=== PATIENT | male | born 1970 | race Caucasian/White ===

== ENCOUNTER 2024-04-01 09:53 | Outpatient (CLI) | payer MEDICAID, SELFPAY ==
[2024-04-01 18:10] LABS: Basophils # 0.1 K/mm3 (0-0.2); Basophils % 0.9 % (0.1-2.0); Eosinophils # 0.1 K/mm3 (0.0-0.4); Eosinophils % 0.9 % (0.1-12.0); Hematocrit 40.7 % (42.0-52.0); Hemoglobin 13.5 g/dL (14.1-18.0); Lymphocytes # 1.1 K/mm3 (0.7-4.5); Lymphocytes % 13.6 % (10-50); Mean Corpuscular HGB Conc 33.3 g/dL (31.8-35.4); Mean Corpuscular Hemoglobin 32.6 pg (27.0-31.2); Mean Corpuscular Volume 97.9 fl (80-94); Monocytes # 0.5 K/mm3 (0.1-1.0); Monocytes % 6.5 % (1.7-9.3); Neutrophils # 6.3 K/mm3 (1.8-7.8); Neutrophils % 78.1 % (37.0-80.0); Platelet Count 144 K/mm3 (142-424); Red Blood Count 4.15 M/mm3 (4.60-6.20); Red Cell Distribution Width 16.5 % (11.5-17.5); White Blood Count 8.1 K/mm3 (4.8-10.8)
[2024-04-01 18:47] LABS: Alanine Aminotransferase 41 U/L (12-78); Albumin Level 3.1 g/dl (3.5-5.0); Albumin/Globulin Ratio 0.7 (1.1-1.8); Alkaline Phosphatase 183 U/L (38-126); Anion Gap 13.7 mEq/L (5-15); Aspartate Amino Transferase 154 U/L (17-59); Bilirubin,Total 9.7 mg/dl (0.2-1.3); Blood Urea Nitrogen 5 mg/dl (9-20); Calcium 8.2 mg/dl (8.4-10.2); Carbon Dioxide 35 mmol/L (22.0-30.0); Chloride 87 mmol/L (98-107); Chol/HDL Ratio 16.8 (1-3.5); Cholesterol 252 mg/dl (140-200); Estimated Glomerular Filt Rate 117 ml/min (>60); GFR (African American) 141 ML/MIN (>60); Globulin 4.7 g/dL (1.3-3.2); Glucose 154 mg/dl (74-100); HDL Cholesterol 15 mg/dl (40-60); Lipase 401 U/L (23-300); Sodium 133 mmol/L (136-145); Total Protein,Serum 7.8 g/dl (6.3-8.2); Triglycerides 168 mg/dl (30-150); VLDL Cholesterol 34 mg/dL (0-40)
[2024-04-01 19:06] LABS: Direct LDL Cholesterol 141.73 mg/dL (100-129)
[2024-04-01 19:09] LABS: Potassium 2.7 mmoL/L (3.5-5.1)
[2024-04-01 19:15] LABS: Prostate Specific Ag Screen 0.8 ng/ml (0.0-4.0)
== END 2024-04-01 23:59 | disposition home or self-care (01) ==
LOC: LAB.DROPOF 04-02 09:54
PROVIDERS: PCP Family Medicine; Visit Provider Family Medicine
DX: R17 Unspecified jaundice (principal); R10.9 Unspecified abdominal pain; Z12.5 Encounter for screening for malignant neoplasm of prostate
CPT/HCPCS: 80053; 80061; 83690; 85025; G0103

== ENCOUNTER 2024-04-05 11:43 | Outpatient (CLI) | payer MEDICAID, SELFPAY ==
[2024-04-05 21:24] LABS: Alanine Aminotransferase 35 U/L (12-78); Albumin Level 3.3 g/dl (3.5-5.0); Albumin/Globulin Ratio 0.7 (1.1-1.8); Alkaline Phosphatase 151 U/L (38-126); Aspartate Amino Transferase 136 U/L (17-59); Bilirubin,Total 13.2 mg/dl (0.2-1.3); Blood Urea Nitrogen 6 mg/dl (9-20); Calcium 8.5 mg/dl (8.4-10.2); Carbon Dioxide 34 mmol/L (22.0-30.0); Chloride 87 mmol/L (98-107); Estimated Glomerular Filt Rate 117 ml/min (>60); GFR (African American) 141 ML/MIN (>60); Globulin 4.7 g/dL (1.3-3.2); Glucose 96 mg/dl (74-100); Sodium 134 mmol/L (136-145)
[2024-04-05 21:32] LABS: Anion Gap 15.9 mEq/L (5-15)
[2024-04-05 22:22] LABS: Potassium 2.9 mmoL/L (3.5-5.1)
[2024-04-10 15:19] LABS: HBsAg Screen Negative (Negative); HCV Ab Equivocal (Non Reactive); Hep A Ab, IGM Negative (Negative); Hep B Core Ab, IgM Negative (Negative)
== END 2024-04-05 23:59 | disposition home or self-care (01) ==
LOC: LAB.DROPOF 04-06 11:43
PROVIDERS: PCP Family Medicine; Visit Provider Family Medicine
DX: E87.6 Hypokalemia (principal); K75.2 Nonspecific reactive hepatitis
CPT/HCPCS: 80053; 80074

== ENCOUNTER 2024-04-08 08:17 | Outpatient (CLI) | payer MEDICAID, SELFPAY ==
--- NOTE | 2024-04-08 08:18 | CT_ITS ---
FINAL REPORT TECHNIQUE: After the administration of intravenous contrast, axial images were obtained through the abdomen and pelvis by computed tomography. This study was performed with technique to keep radiation doses as low as reasonably achievable, (ALARA). Individualized dose reduction techniques using automated exposure control or adjustment of the MA and/or KV according to the patient's size were employed. CLINICAL HISTORY: Jaundice; Weight loss; Abdominal Pain FINDINGS: Abdomen: The lung bases demonstrate a small loculated effusion in the posterior right hemithorax. Scarring is seen at the lung bases. The liver has a nodular contour consistent with cirrhosis. Gallbladder is present. The spleen is enlarged up to 14 cm.. The adrenals are normal. The pancreas is unremarkable. The kidneys enhance appropriately. The aorta is normal in caliber. There is a large amount of ascites throughout the abdomen and pelvis. Pelvis: The appendix is normal. The urinary bladder is unremarkable. There is no free fluid or adenopathy. IMPRESSION: Changes of cirrhosis with associated splenomegaly and ascites. Small right base pleural effusion. Reviewed, Interpreted and Dictated by Don Herron MD Transcribed by Vera Calderon Authenticated and [facility]
[2024-04-08] MEDS: IOPAMIDOL-370 (76%);100ML BOTTLE 75 ML IV (08:54)
[2024-04-08] MEDS: SODIUM CHLORIDE 0.9% 10ML SYR (RAD ONLY) 10 ML IV (08:54)
== END 2024-04-08 23:59 | disposition home or self-care (01) ==
LOC: RAD 08:18
PROVIDERS: PCP Family Medicine; Visit Provider Family Medicine
DX: R10.9 Unspecified abdominal pain (principal); R17 Unspecified jaundice
CPT/HCPCS: 74177; Q9967

== ENCOUNTER 2024-04-09 09:43 | Outpatient (CLI) | payer MEDICAID, SELFPAY ==
[2024-04-09 18:44] LABS: Alanine Aminotransferase 36 U/L (12-78); Albumin Level 3.1 g/dl (3.5-5.0); Albumin/Globulin Ratio 0.7 (1.1-1.8); Alkaline Phosphatase 160 U/L (38-126); Anion Gap 12.4 mEq/L (5-15); Aspartate Amino Transferase 130 U/L (17-59); Bilirubin,Total 8.7 mg/dl (0.2-1.3); Blood Urea Nitrogen 5 mg/dl (9-20); Calcium 8.8 mg/dl (8.4-10.2); Carbon Dioxide 32 mmol/L (22.0-30.0); Chloride 94 mmol/L (98-107); Estimated Glomerular Filt Rate 117 ml/min (>60); GFR (African American) 141 ML/MIN (>60); Globulin 4.5 g/dL (1.3-3.2); Glucose 114 mg/dl (74-100); Potassium 3.4 mmoL/L (3.5-5.1); Sodium 135 mmol/L (136-145); Total Protein,Serum 7.6 g/dl (6.3-8.2)
== END 2024-04-09 23:59 | disposition home or self-care (01) ==
LOC: LAB.DROPOF 04-13 09:43
PROVIDERS: PCP Family Medicine; Visit Provider Family Medicine
DX: E87.6 Hypokalemia (principal)
CPT/HCPCS: 80053

== ENCOUNTER 2024-06-14 19:27 | Outpatient (CLI) | payer MEDICAID, SELFPAY ==
[2024-06-14 20:05] LABS: Basophils # 0.1 K/mm3 (0-0.2); Basophils % 1.4 % (0.1-2.0); Eosinophils # 0.2 K/mm3 (0.0-0.4); Eosinophils % 5.6 % (0.1-12.0); Hematocrit 32.4 % (42.0-52.0); Hemoglobin 10.4 g/dL (14.1-18.0); Lymphocytes # 1.1 K/mm3 (0.7-4.5); Lymphocytes % 25.7 % (10-50); Mean Corpuscular HGB Conc 32.2 g/dL (31.8-35.4); Mean Corpuscular Hemoglobin 30.9 pg (27.0-31.2); Mean Corpuscular Volume 95.9 fl (80-94); Mean Platelet Volume 10.2 fl (7.4-10.4); Monocytes # 0.2 K/mm3 (0.1-1.0); Monocytes % 5.5 % (1.7-9.3); Neutrophils # 2.5 K/mm3 (1.8-7.8); Neutrophils % 61.7 % (37.0-80.0); Platelet Count 133 K/mm3 (142-424); Red Blood Count 3.38 M/mm3 (4.60-6.20); Red Cell Distribution Width 14.3 % (11.5-17.5); White Blood Count 4.1 K/mm3 (4.8-10.8)
[2024-06-14 20:28] LABS: Alanine Aminotransferase 30 U/L (12-78); Albumin Level 2.7 g/dl (3.5-5.0); Albumin/Globulin Ratio 0.6 (1.1-1.8); Alkaline Phosphatase 374 U/L (38-126); Anion Gap 6.8 mEq/L (5-15); Aspartate Amino Transferase 68 U/L (17-59); Bilirubin,Total 4.4 mg/dl (0.2-1.3); Blood Urea Nitrogen 6 mg/dl (9-20); Calcium 8.5 mg/dl (8.4-10.2); Carbon Dioxide 29 mmol/L (22.0-30.0); Chloride 104 mmol/L (98-107); Estimated Glomerular Filt Rate 117 ml/min (>60); GFR (African American) 141 ML/MIN (>60); Globulin 4.2 g/dL (1.3-3.2); Glucose 113 mg/dl (74-100); Potassium 3.8 mmoL/L (3.5-5.1); Sodium 136 mmol/L (136-145); Total Protein,Serum 6.9 g/dl (6.3-8.2)
== END 2024-06-14 23:59 | disposition home or self-care (01) ==
LOC: LAB.DROPOF 19:28
PROVIDERS: PCP Family Medicine; Visit Provider Family Medicine
DX: R10.9 Unspecified abdominal pain (principal); R42 Dizziness and giddiness
CPT/HCPCS: 80053; 85025

== ENCOUNTER 2024-06-20 20:35 | Inpatient (IN) | payer MEDICAID, SELFPAY ==
[2024-06-20 20:45] VITALS: BP 113/65; PULSE 108; RESP 16; TEMP 37.6; O2SAT 93; BMI 21.2
--- NOTE | 2024-06-20 20:45 | XR_ITS ---
PROCEDURE INFORMATION: Exam: XR Chest Exam date and time: 06/20/2024 9:20 PM Age: 54 years old Clinical indication: Other: Encephalopathy TECHNIQUE: Imaging protocol: Radiologic exam of the chest. Views: 1 view. COMPARISON: CT ABDOMEN PELVIS W CON 04/08/2024 8:35 AM FINDINGS: Lungs: Mild bibasilar atelectasis with small lung volumes. No acute infiltrates. Pleural spaces: Unremarkable. No pleural effusion. No pneumothorax. Heart/Mediastinum: Unremarkable. No cardiomegaly. Bones/joints: Unremarkable. IMPRESSION: Mild bibasilar atelectasis with small lung volumes. No acute infiltrates.
--- NOTE | 2024-06-20 20:45 | ECG_ITS ---
APPROVED REPORT Exam: Resting ECG HR:100 bpm ECG Measurements Heart Rate 100 AXES IL 143 P 39 QRSd 93 QRS 25 QT 379 T 34 QTc 436 Conclusion SINUS TACHYCARDIA NONSPECIFIC ST & T-WAVE ABNORMALITY ABNORMAL RHYTHM ECG Electronically signed by : KEISHA HERNANDEZ, 06/21/2024 00:25:01
--- NOTE | 2024-06-20 20:45 | CT_ITS ---
PROCEDURE INFORMATION: Exam: CT Head Without Contrast Exam date and time: 06/20/2024 9:22 PM Age: 54 years old Clinical indication: Other: Encephalopathy TECHNIQUE: Imaging protocol: Computed tomography of the head without contrast. Radiation optimization: All CT scans at this facility use at least one of these dose optimization techniques: automated exposure control; mA and/or kV adjustment per patient size (includes targeted exams where dose is matched to clinical indication); or iterative reconstruction. COMPARISON: No relevant prior studies available. FINDINGS: Brain: Normal. No hemorrhage. Unremarkable white matter. No mass effect. Cerebral ventricles: No ventriculomegaly. Paranasal sinuses: Visualized sinuses are unremarkable. No fluid levels. Mastoid air cells: Visualized mastoid air cells are well aerated. Bones: Unremarkable. No acute fracture. Soft tissues: Unremarkable. IMPRESSION: No acute intracranial abnormality.
[2024-06-20 21:00] VITALS: BP 94/60; PULSE 100; O2SAT 94
[2024-06-20 21:10] LABS: Basophils % 0.2 % (0.1-2.0); Eosinophils % 0.3 % (0.1-12.0); Hemoglobin 10.2 g/dL (14.1-18.0); Lymphocytes # 0.2 K/mm3 (0.7-4.5); Lymphocytes % 2.6 % (10-50); Mean Corpuscular HGB Conc 32.9 g/dL (31.8-35.4); Mean Corpuscular Volume 94.3 fl (80-94); Mean Platelet Volume 8.2 fl (7.4-10.4); Monocytes # 0.3 K/mm3 (0.1-1.0); Monocytes % 3.4 % (1.7-9.3); Neutrophils # 7.1 K/mm3 (1.8-7.8); Neutrophils % 93.5 % (37.0-80.0); Platelet Count 118 K/mm3 (142-424); Red Blood Count 3.28 M/mm3 (4.60-6.20); Red Cell Distribution Width 14.4 % (11.5-17.5); White Blood Count 7.5 K/mm3 (4.8-10.8)
[2024-06-20 21:12] LABS: MANUAL DIFFERENTIAL MANUAL DIFFERENTIAL (MANUAL DIFF)
--- NOTE | 2024-06-20 21:14 | PC.NURSE ---
RT notified of VBG
[2024-06-20 21:15] LABS: Chloride 104 mmol/L (98-107)
[2024-06-20 21:16] LABS: Albumin Level 2.9 g/dl (3.5-5.0); Sodium 135 mmol/L (136-145)
[2024-06-20 21:19] LABS: Alanine Aminotransferase 35 U/L (12-78); Albumin/Globulin Ratio 0.7 (1.1-1.8); Alkaline Phosphatase 200 U/L (38-126); Aspartate Amino Transferase 86 U/L (17-59); Bilirubin,Total 6.3 mg/dl (0.2-1.3); Blood Urea Nitrogen 6 mg/dl (9-20); Calcium 8.3 mg/dl (8.4-10.2); Carbon Dioxide 27 mmol/L (22.0-30.0); Creatinine Clearance Estimated 93 mL/min (50-200); Estimated Glomerular Filt Rate 100 ml/min (>60); GFR (African American) 121 ML/MIN (>60); Globulin 3.9 g/dL (1.3-3.2); Glucose 94 mg/dl (74-100); Lipase 232 U/L (23-300); Total Protein,Serum 6.8 g/dl (6.3-8.2)
--- NOTE | 2024-06-20 21:19 | HMH.EDGENADL ---
Discharge Plan Disposition Chief Complaint: Altered Mental Status Prescriptions Prescriptions: No Action pantoprazole 40 mg tablet,delayed release (DR/EC) 40 mg PO DAILY spironolactone 50 mg tablet 50 mg PO DAILY nadolol 20 mg tablet 40 mg PO DAILY torsemide 20 mg tablet See Rx Instructions .ROUTE .COMPLEX Qty: 60 3RF Rx Instructions: one qd-bid prn edema lactulose 10 gram/15 mL solution PO DAILY Patient Comments: TAKE 30 ML EVERY DAY BY ORAL ROUTE FOR 30 DAYS. oxycodone 5 mg tablet 5 mg PO DAILY PRN (Reason: pain) Qty: 20 0RF potassium chloride 20 mEq tablet extended release 20 meq PO TID Qty: 90 1RF Referrals Follow up/Referrals: Hamilton Esteves MD [Primary Care Provider] - See instructions Instructions Patient Instructions: DI for Altered Mental Status Print Language Print Language: Sinhala Discharge ED Provider: Ab [facility] Adult HPI General Chief complaint: Altered Mental Status Stated complaint: lethargy,confusion,edema Time Seen by Provider: 06/20/24 20:36 Mode of Arrival: EMS Source of Information: Patient Limitations: No Limitations Description of Symptoms (Recalled from ER Triage Doc. by RN): 54 yo male presents with cc of altered mental status and swelling. Patient has a PMH: LIVER cirrhosis, and it is suspected by family that this is liver related. Patient is alert to self, able to discuss and answer most questions, but appears confused. Moderate weeping to BLE History of Present Illness HPI narrative: Patient is a 54-year-old male past medical history of alcoholic cirrhosis last drink 6 months ago's emergency department for evaluation of encephalopathy. Patient lives at home. He has had a cough over the last few days, no chest pain, there is associated dysuria. Patient has solitary kidney for which she had kidney cancer and had a previous nephrectomy, unknown if he gets chemoradiation currently. He has never had dialysis before. Patient has had fluid taken off of his abdomen 1 time. He does not know what hospital systems he gets his care in. He is also had swelling of the bilateral lower extremities for years however he states that he has had a red rash popped up on his right lower extremity over the last 48 hours for which he has fashioned a dressing with paper towels and duct tape. Related Data Home Medications ?Medication ?Instructions ?Recorded ?Confirmed nadolol 20 mg tablet 40 mg PO DAILY 05/07/24 06/14/24 pantoprazole 40 mg tablet,delayed 40 mg PO DAILY 05/07/24 06/14/24 release spironolactone 50 mg tablet 50 mg PO DAILY 05/07/24 06/14/24 lactulose 10 gram/15 mL oral PO DAILY 06/14/24 06/14/24 solution Previous Rx's ?Medication ?Instructions ?Recorded potassium chloride 20 mEq 20 meq PO TID #90 tabs 04/19/24 tablet,extended release torsemide 20 mg tablet See Rx Instructions .Route 05/07/24 .COMPLEX #60 tabs oxycodone 5 mg tablet 5 mg PO DAILY PRN pain #20 tabs 06/14/24 Allergies Allergy/AdvReac Type Severity Reaction Status Date / Time No Known Allergies Allergy Verified 06/14/24 08:25 [facility] Disclaimer: The information contained in this section may have been updated after the patient was seen, as this information can be updated by other users. Medical History (Updated 06/14/24 @ 09:32 by Hamilton Esteves MD) Renal cell cancer Surgical History (Updated 06/14/24 @ 09:32 by Hamilton Esteves MD) History of surgery on left wrist Hx of kidney removal Family History Other Cancer Social History Smoking Status: Former smoker tobacco type: cigarettes alcohol intake: current alcohol intake frequency: holidays/special occasions only current occupational status: unemployed Travel in the last 8 weeks: None ROS Obtained: Yes Systems reviewed as appropriate & no additional complaint
[2024-06-20 21:20] LABS: Magnesium 1.4 mg/dl (1.6-2.3); VBG Base Excess -1.9 mmol/L (-2.4-2.3); VBG Oxygen Saturation 79.1 % (50-70); VBG PCO2 31.7 mmol/L (35-51); VBG PH 7.46 mmol/L (7.31-7.41); VBG PO2 43.3 mmol/L (28-40)
[2024-06-20 21:21] LABS: Lactate Venous 3.1 mmol/L (0.4-2.0)
[2024-06-20 21:30] VITALS: BP 95/54; PULSE 103; O2SAT 94
[2024-06-20 21:34] LABS: Troponin I < 0.01 ng/ml (0.00-0.034)
[2024-06-20 21:44] LABS: Bilirubin,Direct 1.6 mg/dl (0.0-0.4)
[2024-06-20 21:47] LABS: Ethyl Alcohol < 10 mg/dl (0-10)
[2024-06-20 21:50] LABS: Ammonia 38 umol/L (9-30)
[2024-06-20 22:00] VITALS: BP 94/52; PULSE 102; PULSE 103; O2SAT 95
[2024-06-20 22:12] LABS: Lymphocytes % 3 % (10-50); Monocytes % 5 % (2-9); Neutrophils % 92 % (42-76); RBC Morphology Normal; Total Cells Counted 100
[2024-06-20 22:13] LABS: Platelet Estimate Slight Decrease
[2024-06-20 22:20] VITALS: PULSE 104
--- NOTE | 2024-06-20 22:54 | PC.NURSE ---
call placed to rt for duoneb. informed md of persistent hypotension and initiation of ivf's. he will re-assess patient at this time.
--- NOTE | 2024-06-20 23:04 | PC.NURSE ---
bed request ordered on wrong patient
[2024-06-20 23:24] LABS: NT Pro Brain Natriuretic Pep. 1950 pg/mL (0-125)
[2024-06-20 23:58] LABS: Appearance,Body Fld. Normal; Source, Body Fld. Peritoneal Fluid
[2024-06-21] VITALS (20 sets, daily range): BP systolic 84–106; BP diastolic 50–65; PULSE 87–114; RESP 15–26; TEMP 36.8–37.8; O2SAT 93–98; BMI 31.1; BMI 31.3
[2024-06-21 00:07] LABS: RBC,Body Fluid < 10 cells/uL (< 10 X 10^3); TNC,Body Fluid 176 cells/uL (< 1000); Volume,Body Fld. 33.5 mL
[2024-06-21 00:31] LABS: Microscopic, Urine URINE MICROSCOPIC (MICROSCOPIC)
[2024-06-21 00:38] LABS: Appearance,Urine CLEAR (Clear); Blood, Urine Negative (Negative); Glucose,Urine (UA) Negative (Negative); Ketones,Urine TRACE (Negative); Leukocyte Esterase,Urine Negative (Negative); Nitrate,Urine Negative (Negative); Protein,Urine TRACE (Negative); Specific Gravity, Urine >= 1.030 (1.005-1.030); Urobilinogen,Urine >=8.0 EU/dl (0.2)
[2024-06-21 00:40] LABS: Bilirubin,Urine 2+ (Negative); Color,Urine Dark Yellow (Yellow)
--- NOTE | 2024-06-21 00:44 | XR_ITS ---
PROCEDURE INFORMATION: Exam: XR Right Ankle Exam date and time: 06/21/2024 1:00 AM Age: 54 years old Clinical indication: Pain; Ankle; Right; Additional info: Right ankle pain TECHNIQUE: Imaging protocol: Radiologic exam of the right ankle. Views: 1 or 2 views. COMPARISON: No relevant prior studies available. FINDINGS: Bones/joints: No acute fracture, dislocation or osseous destructive process. Soft tissues: Diffuse soft tissue swelling about the ankle. No radiopaque foreign body. IMPRESSION: 1. No acute osseous findings. 2. Soft tissue swelling.
--- NOTE | 2024-06-21 01:03 | PC.NURSE ---
Patient arrived to floor via stretcher from ED at 00:56.
[2024-06-21 01:21] LABS: Reflex Lactic Add Lactic Reflex
[2024-06-21 01:28] LABS: Mononuclear WBCs,Body Fluid 90 %; Polynuclear WBC,Body Fluid 10 %
[2024-06-21 01:35] LABS: Troponin I < 0.01 ng/ml (0.00-0.034)
--- NOTE | 2024-06-21 01:42 | EXP.HP ---
History of Present Illness *Admission Date: 06/21/24 *Reason for visit:: Encephalopathy, with confusion altered mental status, jaundice, edema *History of present illness: Patient was not able to give clear history, from evaluating chart main thing is only has 1 kidney question cancer and the one that was removed. Greater than 40-year smoking, has been seeing a local primary care provider. But apparently ended up in long-term for more than 10 days, where he was given none of his medications, he now comes in jaundice, pleasantly confused,, significant abdominal and lower extremity edema, confirmed with CT scan. Mild pleural effusion in the bases of the lungs. Showing signs of severe malnutrition, review of older charts indicated elevated PT/INR. Thrombocytopenia, splenomegaly, cirrhosis with ascites. ER physician evaluated the patient and did tap fluid from the abdomen, still waiting on results. I have met with the ER physician and do agree that the gentleman needs to be placed in, to evaluate for nutrition, edema fluid status and to see if we can get him back on the right medications. On interview on morning rounds, patient states that he came in because of weakness in his legs. He has been progressively worsening for the past 2 weeks. He has been home from long-term for a few weeks and had a care. His brothers have been unable to get him up and take care of him. Came to the ER for evaluation for weakness and confusion. Alert and oriented to place and self today. Complaining of abdominal pain, worse with palpation, no rebound. States his legs been swelling more. [facility] Disclaimer: The information contained in this section may have been updated after the patient was seen, as this information can be updated by other users. Medical History Renal cell cancer Surgical History History of surgery on left wrist Hx of kidney removal Family History Other Cancer Social History Smoking Status: Current every day smoker tobacco type: cigarettes packs per day: 1 years smoked: 50 alcohol intake: former current occupational status: unemployed Travel in the last 8 weeks: None household members: none housing: other lives independently: Yes (pt states he lives in a camper ) marital status: single residential: No Review of Systems Review of Systems Review of systems:: unable to obtain (Patient has pleasantly confused was not able to get complete history) and pertinent systems reviewed and negative unless documented below Constitutional Constitutional: Reports as per HPI, Reports anorexia, Reports fatigue, Reports malaise and Reports weakness Eyes Eyes: Reports as per HPI ENT Ears, Nose, Mouth, and Throat: Reports system reviewed and no additional complaints, except as documented and Reports as per HPI *Cardiovascular Cardiovascular: Reports as per HPI, Reports edema, Reports leg edema, Reports leg ulcers, Reports pedal edema and Reports rapid heart rate Comments: He denies chest pain *Respiratory Respiratory: Reports as per HPI Comments: Patient reports no difficulty breathing *Gastrointestinal Gastrointestinal: Reports as per HPI, Reports abdominal pain and Reports bloating *Genitourinary Genitourinary: Reports as per HPI, Reports scrotal swelling and Reports urinary incontinence *Musculoskeletal Musculoskeletal: Reports as per HPI, Reports joint swelling and Reports muscle weakness Integumentary/Breasts Skin/Breast: Reports as per HPI, Reports change in pigmentation, Reports lesions (To scrotum feet and legs), Reports non-healing lesions, Reports skin pain, Reports sores and Reports skin swelling *Neurologic Neurologic: Reports as per HPI, Reports behavioral changes, Reports confusion, Reports memory loss and Reports weakness Comme
[2024-06-21 01:46] LABS: Bacteria,Urine Trace /lpf; Squamous Epithelial Cell,Urine Occasional #/hpf (0-5); WBC,Urine Occasional #/hpf (0-3)
[2024-06-21 03:34] LABS: Reflex Lactic (2 hrs) Add Lactic Reflex
[2024-06-21 04:31] LABS: Albumin Level 2.5 g/dl (3.5-5.0); Chloride 105 mmol/L (98-107); Potassium 3.1 mmoL/L (3.5-5.1); Sodium 136 mmol/L (136-145)
[2024-06-21 04:33] LABS: Anion Gap 11.1 mEq/L (5-15); Blood Urea Nitrogen 6 mg/dl (9-20); Carbon Dioxide 23 mmol/L (22.0-30.0); Creatinine Clearance Estimated 136 mL/min (50-200); Estimated Glomerular Filt Rate 100 ml/min (>60); GFR (African American) 121 ML/MIN (>60)
[2024-06-21 04:34] LABS: Alanine Aminotransferase 42 U/L (12-78); Albumin/Globulin Ratio 0.7 (1.1-1.8); Alkaline Phosphatase 140 U/L (38-126); Aspartate Amino Transferase 87 U/L (17-59); Bilirubin,Total 5.7 mg/dl (0.2-1.3); Calcium 8.1 mg/dl (8.4-10.2); Globulin 3.7 g/dL (1.3-3.2); Glucose 102 mg/dl (74-100); Hematocrit 27.6 % (42.0-52.0); Hemoglobin 9.3 g/dL (14.1-18.0); Lymphocytes # 0.2 K/mm3 (0.7-4.5); Lymphocytes % 2.2 % (10-50); Magnesium 1.8 mg/dl (1.6-2.3); Mean Corpuscular HGB Conc 33.5 g/dL (31.8-35.4); Mean Corpuscular Hemoglobin 31.1 pg (27.0-31.2); Mean Corpuscular Volume 92.8 fl (80-94); Mean Platelet Volume 7.6 fl (7.4-10.4); Monocytes # 0.2 K/mm3 (0.1-1.0); Neutrophils % 95.7 % (37.0-80.0); Platelet Count 100 K/mm3 (142-424); Red Blood Count 2.98 M/mm3 (4.60-6.20); Red Cell Distribution Width 14.6 % (11.5-17.5); Total Protein,Serum 6.2 g/dl (6.3-8.2); White Blood Count 9.4 K/mm3 (4.8-10.8)
[2024-06-21 04:43] LABS: Lactic Acid 5.5 mmol/L (0.7-2.1)
[2024-06-21 04:47] LABS: Troponin I < 0.01 ng/ml (0.00-0.034)
[2024-06-21 06:57] LABS: INR 1.98 (0.9-1.1); Prothrombin Time 20.7 seconds (10.1-12.5)
--- NOTE | 2024-06-21 07:22 | PC.NURSE ---
Pt alert to person and situation at times. Pt has not voiced any complaints to staff t/o shift. Elaine in place draining bright yellow clear urine. Pt skin jaundice. Pt has scattered wounds to BLE and ralf area/testicles are edematous, excoriated. Nystatin powder applied. Pt had 1 BM during shift. Transferred to BSC with 1x assist. Bed alarm on for pt safety. Call light within reach.
--- NOTE | 2024-06-21 07:25 | CT_ITS ---
FINAL REPORT CLINICAL HISTORY: tenderness, cirrhosis, SBP? COMPARISON: 04/08/2024 FINDINGS: Axial CT images of the abdomen and pelvis were obtained without intravenous contrast. Coronal reformatted images were also obtained.This study was performed with techniques to keep radiation doses as low as reasonably achievable (ALARA). Individualized dose reduction techniques using automated exposure control or adjustment of mA and/or kV according to the patient's size were employed. Abdomen: There are small loculated pleural effusions which are stable. Mild bibasilar atelectasis is noted. There is no evidence of renal stone or hydronephrosis. The liver has an irregular contour consistent with cirrhosis. Splenomegaly is noted with the spleen measuring 15.4 cm in length. Moderate ascites is stable. There are multiple gallstones seen in the gallbladder. The pancreas has an unremarkable appearance. No mass or adenopathy is seen. There is diffuse colonic wall thickening which likely represents hepatic colopathy. Upper abdominal varices are again noted. Pelvis: The appendix is unremarkable. There are multiple colonic diverticula. A Elaine catheter is present. There is moderate anasarca which is new. IMPRESSION: Persistent findings of cirrhosis with portal hypertension. Stable moderate ascites. New moderate anasarca. Reviewed, Interpreted and Dictated by Hasmukh Boss III, MD Transcribed by Lurdes Padilla Authenticated and [facility]
--- NOTE | 2024-06-21 07:51 | EXP.PHA.CONS ---
Pharmacy Consult Date: 06/21/24 Time: 07:51 Referring provider: DR. HERNANDEZ Reason for Consult:: VANCOMYCIN DOSING Allergies Allergy/AdvReac Type Severity Reaction Status Date / Time No Known Allergies Allergy Verified 06/14/24 08:25 Home Medications ?Medication ?Instructions ?Recorded ?Confirmed ?Type potassium chloride 20 mEq 20 meq PO TID #90 tabs 04/19/24 06/21/24 Rx tablet,extended release nadolol 20 mg tablet 20 mg PO DAILY 05/07/24 06/21/24 History pantoprazole 40 mg tablet,delayed 40 mg PO BID 05/07/24 06/21/24 History release spironolactone 50 mg tablet 50 mg PO DAILY 05/07/24 06/21/24 History lactulose 10 gram/15 mL oral 10 g PO DAILY 06/14/24 06/14/24 History solution oxycodone 5 mg tablet 5 mg PO DAILY PRN pain #20 tabs 06/14/24 06/21/24 Rx torsemide 20 mg tablet 20 mg PO DAILY 06/21/24 06/21/24 History New Prescriptions to Start Prescriptions: Height: 1.73 m Weight: 93.077 kg Laboratory Results:: Laboratory Results - last 24 hr 06/20/24 20:45: WBC 7.5, RBC 3.28 L, Hgb 10.2 L, Hct 31.0 L, MCV 94.3 H, MCH 31.0, MCHC 32.9, RDW 14.4, Plt Count 118 L, MPV 8.2, Neut % (Auto) 93.5 H, Lymph % (Auto) 2.6 L, [place] % (Auto) 3.4, Eos % (Auto) 0.3, Baso % (Auto) 0.2, Neut # (Auto) 7.1, Lymph # (Auto) 0.2 L, [place] # (Auto) 0.3, Eos # (Auto) 0.0, Baso # (Auto) 0.0, Total Counted 100, Neutrophils % (Manual) 92 H, Lymphocytes % (Manual) 3 L, Monocytes % (Manual) 5, Platelet Estimate Slight decrease, RBC Morphology Normal, VBG pH 7.46 H, VBG pCO2 31.7 L, VBG pO2 43.3 H, VBG HCO3 22.0 L, VBG Total CO2 23.0, VBG O2 Saturation 79.1 H, VBG Base Excess -1.9, VBG Lactic Acid 3.1 H, Sodium 135 L, Potassium 3.0 L, Chloride 104, Carbon Dioxide 27, Anion Gap 7.0, BUN 6 L, Creatinine 0.80, Estimated Creat Clear 93, Estimated GFR 100, Est GFR ( Amer) 121, Glucose 94, Calcium 8.3 L, Magnesium 1.4 L, Total Bilirubin 6.3 H, Direct Bilirubin 1.6 H, AST 86 H, ALT 35, Alkaline Phosphatase 200 H, Troponin I < 0.01, NT-Pro-B Natriuret Pep 1950 H, Total Protein 6.8, Albumin 2.9 L, Globulin 3.9 H, Albumin/Globulin Ratio 0.7 L, Lipase 232, Plasma/Serum Alcohol < 10 06/20/24 21:36: Ammonia 38 H 06/20/24 23:23: Fluid Source Peritoneal fluid, Fluid Volume 33.5, Fluid Appearance Normal, Fluid RBC (Auto) < 10, Fld Tot Nucleated Cell 176, Fld Polynuclear WBCs % 10, Fld Mononuclear WBCs % 90 06/21/24 00:29: Urine Color Dark yellow, Urine Appearance Clear, Urine pH 6.0, Ur Specific [place] >= 1.030, Urine Protein Trace, Urine Glucose (UA) Negative, Urine Ketones Trace, Urine Blood Negative, Urine Nitrate Negative, Urine Bilirubin 2+ A, Urine Urobilinogen >=8.0, Ur Leukocyte Esterase Negative, Urine RBC None, Urine WBC Occasional, Ur Squamous Epith Cells Occasional, Urine Bacteria Trace 06/21/24 00:55: Troponin I < 0.01 06/21/24 01:28: Lactate 6.0 H 06/21/24 03:53: WBC 9.4 D, RBC 2.98 L, Hgb 9.3 L, Hct 27.6 L, MCV 92.8, MCH 31.1, MCHC 33.5, RDW 14.6, Plt Count 100 L, MPV 7.6, Neut % (Auto) 95.7 H, Lymph % (Auto) 2.2 L, [place] % (Auto) 2.0, Eos % (Auto) 0.0 L, Baso % (Auto) 0.0 L, Neut # (Auto) 9.0 H, Lymph # (Auto) 0.2 L, [place] # (Auto) 0.2, Eos # (Auto) 0.0, Baso # (Auto) 0.0, Sodium 136, Potassium 3.1 L, Chloride 105, Carbon Dioxide 23, Anion Gap 11.1, BUN 6 L, Creatinine 0.80, Estimated Creat Clear 136, Estimated GFR 100, Est GFR ( Amer) 121, Glucose 102 H, Lactate 5.5 H, Calcium 8.1 L, Magnesium 1.8 D, Total Bilirubin 5.7 H, AST 87 H, ALT 42, Alkaline Phosphatase 140 H, Troponin I < 0.01, Total Protein 6.2 L, Albumin 2.5 L D, Globulin 3.7 H, Albumin/Globulin Ratio 0.7 L 06/21/24 06:24: PT 20.7 H, INR 1.98 H Medical History: Medical History (Updated 06/21/24 @ 02:29 by Juan Crockett APRN) Renal cell cancer Assessment and Plan Assessment and plan all Dx Assessment and Plan for all problems:: Pharmacokinetic dosing service Objective: Patient: Floor: Age: 54 yo Serum creatinine: 0.8 mg/dL Height: 68.1
--- NOTE | 2024-06-21 08:18 | US_ITS ---
FINAL REPORT CLINICAL HISTORY: eval portal flow, thrombosis? COMPARISON: None FINDINGS: Sonographic images of the right upper quadrant were obtained. The pancreas is partially obscured. The liver has a coarsened echotexture with a lobular contour consistent with cirrhosis. Moderate ascites is present. The portal vein measures 9 mm in size with normal directional flow. There is gallbladder wall thickening of uncertain etiology, with a gallbladder wall thickness of 6 mm. A moderate amount of sludge is present in the gallbladder. There is no evidence of biliary ductal dilatation. The common bile duct was not measured on this examination. Limited images of the right kidney are unremarkable. IMPRESSION: Coarsened echotexture of the liver with a lobular contour consistent with cirrhosis. Moderate ascites is present. No evidence of portal vein thrombosis. Moderate sludge present in the gallbladder with mild gallbladder wall thickening, etiology uncertain. Reviewed, Interpreted and Dictated by Hasmukh Boss III, MD Transcribed by Luz Marina Lepe Authenticated and [facility]
--- NOTE | 2024-06-21 12:53 | HMH.PHAINT1 ---
Pharmacy Intervention Comments: MEDICATION RECONCILIATION COMPLETED ON PATIENT USING EXTERNAL FILL HISTORY FROM PHARMACY AND LIST FROM PCP OFFICE. -IRIS CASAS, GRETELD
--- NOTE | 2024-06-21 13:56 | HMH.OTEV ---
OT Inpatient Evaluation Rehab OT IP Evaluation Start: 06/21/24 11:25 Freq: ONCE Status: Active Protocol: [facility]24 [facility] (Rec: 06/21/24 13:56 [facility] [id number]) Rehab OT IP Assessment Subjective History Pt oriented x 2 on arrival. Pt agreeable to engage in therapy evaluation. Pt admitted on 06/21/24 due Encephalopathy, with confusion altered mental status, jaundice, edema, and COPD. History and physical report: Patient was not able to give clear history, from evaluating chart main thing is only has 1 kidney question cancer and the one that was removed. Greater than 40-year smoking, has been seeing a local primary care provider. But apparently ended up in group home for more than 10 days, where he was given none of his medications, he now comes in jaundice, pleasantly confused, , significant abdominal and lower extremity edema, confirmed with CT scan. Mild pleural effusion in the bases of the lungs. Showing signs of severe malnutrition, review of older charts indicated elevated PT/INR. Thrombocytopenia, splenomegaly , cirrhosis with ascites. ER physician evaluated the patient and did tap fluid from the abdomen, still waiting on results. I have met with the ER physician and do agree that the gentleman needs to be placed in, to evaluate for nutrition, edema fluid status and to see if we can get him back on the right medications. Subjective I would like a walker. Prior to being in the hospital , pt claims he was normally independent with all ADLs such as dressing, bathing, and
--- NOTE | 2024-06-21 14:30 | HMH.PTEV ---
Physical Therapy Evaluation Rehab PT IP Evaluation Start: 06/21/24 11:25 Freq: ONCE Status: Active Protocol: Document 06/21/24 13:45 PHOANNA (Rec: 06/21/24 14:30 PHORARTHUR [id number]) Subjective/History History History Patient Shyam Dent is a 54 yom who was admitted 06/21/24 for Encephalopathy, with confusion altered mental status, jaundice, and edema. Patient's PMH is consistent with but not limited to Renal cell cancer and hx of left wrist sx and kidney removal. Patient states that he lives by himself and that sometimes his brother comes by to visit and help. Patient does have stairs upon entering the home, he also stated that he use to have a cane. Patient stated he would like to have a walker in order to be able to walker better. Subjective Subjective Patient states that his feet are very swollen and that he was having pain in his feet and bottom. Patient remained on 3L/ min of supplemental oxygen through [place], patient was assisted back to bed with call brenner placed within his reach. Rehab PT IP Eval Objective Appearance Patient Behavior Restless,Distractible, Wandering,Confused Patient Orientation Place,Name,Age,Birthday Difficulty following instructions mild Speech Pattern Delayed,Soft-Spoken,Mumbled Ambulation Patient Able to Ambulate No Balance Ability to Arise Able, uses arms to help Sitting Balance Leans or slides in chair Standing Balance Unsteady Dynamic Sitting Balance Ability Fair Dynamic Standing Balance Ability Fair Transfers Bed Transfer Ability Minimal x 2 (25% assist) Sit to Stand Bed Transfer Ability Minimal x 2 (25% assist) Rehab PT IP prob,goals,plan Problems Date of Evaluation: 06/21/24 PT IP Problems Bed Mobility,Transfers,Balance Rehab Potential Rehab Potential Good Equipment Needs Assistive Devices Rolling / Wheeled Walker Plan PT Intervention Plan Bed Mobility,Transfers,Balance PT
[2024-06-22] VITALS (18 sets, daily range): BP systolic 84–108; BP diastolic 49–67; PULSE 69–101; RESP 14–23; TEMP 36.8–37; O2SAT 87–98; BMI 32.1
--- NOTE | 2024-06-22 05:43 | PC.NURSE ---
Addendum entered by Abbie Chacko RN 06/22/24 06:40: Pt has had a total of 1250ml urine output during shift. RT attempted to wean pt off o2. RA sat 87%. Pt placed back on 1 L nc. Original Note: Pt a/o x4. Pt c/o pain in his BLE 1x. PRN medication administered per JAN. Pt has been titrated down to 1 L nc through night, o2 >90%. Blood pressure remains soft with MAP 60-68. Pt has been encouraged to use his incentive spirometer while awake, best result 2000cc. Elaine in place draining clear bright yellow urine. Pt has remained awake throughout majority of night. Call light within reach.
[2024-06-22 05:56] LABS: Basophils % 0.1 % (0.1-2.0); Eosinophils % 0.1 % (0.1-12.0); Hematocrit 25.4 % (42.0-52.0); Hemoglobin 8.6 g/dL (14.1-18.0); Lymphocytes # 0.5 K/mm3 (0.7-4.5); Lymphocytes % 6.4 % (10-50); Mean Corpuscular HGB Conc 33.9 g/dL (31.8-35.4); Mean Corpuscular Hemoglobin 31.1 pg (27.0-31.2); Mean Corpuscular Volume 91.9 fl (80-94); Mean Platelet Volume 8.2 fl (7.4-10.4); Monocytes # 0.4 K/mm3 (0.1-1.0); Monocytes % 4.4 % (1.7-9.3); Platelet Count 100 K/mm3 (142-424); Red Blood Count 2.76 M/mm3 (4.60-6.20); Red Cell Distribution Width 14.5 % (11.5-17.5); White Blood Count 7.8 K/mm3 (4.8-10.8)
[2024-06-22 06:00] LABS: MANUAL DIFFERENTIAL MANUAL DIFFERENTIAL (MANUAL DIFF)
[2024-06-22 06:01] LABS: Albumin Level 2.3 g/dl (3.5-5.0); Chloride 103 mmol/L (98-107); Potassium 3.6 mmoL/L (3.5-5.1); Sodium 133 mmol/L (136-145)
[2024-06-22 06:04] LABS: Alanine Aminotransferase 29 U/L (12-78); Albumin/Globulin Ratio 0.7 (1.1-1.8); Alkaline Phosphatase 88 U/L (38-126); Anion Gap 5.6 mEq/L (5-15); Aspartate Amino Transferase 69 U/L (17-59); Bilirubin,Total 4.2 mg/dl (0.2-1.3); Blood Urea Nitrogen 18 mg/dl (9-20); Calcium 8.2 mg/dl (8.4-10.2); Carbon Dioxide 28 mmol/L (22.0-30.0); Creatinine Clearance Estimated 137 mL/min (50-200); Estimated Glomerular Filt Rate 100 ml/min (>60); GFR (African American) 121 ML/MIN (>60); Globulin 3.5 g/dL (1.3-3.2); Glucose 132 mg/dl (74-100); Total Protein,Serum 5.8 g/dl (6.3-8.2)
[2024-06-22 06:05] LABS: INR 2.09 (0.9-1.1); Magnesium 1.9 mg/dl (1.6-2.3); Prothrombin Time 21.8 seconds (10.1-12.5)
[2024-06-22 06:15] LABS: Lymphocytes % 6 % (10-50); Monocytes % 1 % (2-9); Neutrophils % 93 % (42-76); Total Cells Counted 100
[2024-06-22 06:16] LABS: Platelet Estimate Slight Decrease; RBC Morphology Normal
--- NOTE | 2024-06-22 12:33 | EXP.ACUTE.PN ---
Subjective *Date: 06/22/24 *Time: 22:13 Interval history: Patient more alert this morning. On 2 L oxygen overnight, weaned to room air. Having urine output, neutral for the past 24 hours in light of IV fluids he was administered. No nausea or vomiting. Has had a large bowel movement this morning. Remains afebrile. Still having abdominal discomfort but no peritonitis. Catheter in place, discussed increasing diuretics today. Still has significant lower extremity edema Medical Exam Vital signs and Labs for Last 24 Hours: Vital Signs Temp Pulse Pulse Resp BP Pulse Ox O2 Del Method 06/22/24 11:27 81 06/22/24 11:27 80 06/22/24 11:15 Room Air 06/22/24 10:00 86 20 96/63 L 93 L Room Air 06/22/24 09:00 Room Air 06/22/24 08:50 Room Air 06/22/24 08:00 90 22 108/66 L 93 L Room Air 06/22/24 06:41 87 L Room Air 06/22/24 06:33 Room Air 06/22/24 06:02 71 06/22/24 06:02 69 06/22/24 06:02 98 Nasal Cannula 06/22/24 06:00 83 23 95/66 L 98 Nasal Cannula 06/22/24 05:00 Nasal Cannula 06/22/24 04:00 98.2 F 06/22/24 04:00 90 06/22/24 04:00 95 Nasal Cannula 06/22/24 04:00 84 22 92/49 L 95 Nasal Cannula 06/22/24 03:00 Nasal Cannula 06/22/24 02:00 87 19 93/51 L 95 Nasal Cannula 06/22/24 01:00 Nasal Cannula 06/22/24 00:00 98.6 F 06/22/24 00:00 100 H 06/22/24 00:00 89 21 84/53 L 95 Nasal Cannula 06/21/24 23:54 96 H 06/21/24 23:54 87 06/21/24 22:58 Nasal Cannula 06/21/24 22:00 99 H 15 94/55 L 96 Nasal Cannula 06/21/24 21:00 Nasal Cannula 06/21/24 20:00 100 H 06/21/24 20:00 95 Nasal Cannula 06/21/24 20:00 99.0 F 06/21/24 20:00 91 H 19 89/56 L 96 Nasal Cannula 06/21/24 18:05 114 H 06/21/24 18:05 94 H 06/21/24 18:05 93 L Nasal Cannula 06/21/24 18:00 106 H 20 84/53 L 94 L Nasal Cannula 06/21/24 17:00 Nasal Cannula 06/21/24 16:00 90 06/21/24 16:00 94 L Nasal Cannula 06/21/24 16:00 91 H 20 93/58 L 94 L Nasal Cannula 06/21/24 15:00 Nasal Cannula 06/21/24 14:00 94 H 20 90/59 L 96 Nasal Cannula 06/21/24 13:00 Nasal Cannula 06/21/24 13:00 100 H 20 91/53 L 95 Nasal Cannula O2 Flow Rate 06/22/24 11:27 06/22/24 11:27 06/22/24 11:15 06/22/24 10:00 06/22/24 09:00 06/22/24 08:50 06/22/24 08:00 06/22/24 06:41 06/22/24 06:33 06/22/24 06:02 06/22/24 06:02 06/22/24 06:02 1.5 06/22/24 06:00 1 06/22/24 05:00 1 06/22/24 04:00 06/22/24 04:00 06/22/24 04:00 1 06/22/24 04:00 1 06/22/24 03:00 1 06/22/24 02:00 1 06/22/24 01:00 1 06/22/24 00:00 06/22/24 00:00 06/22/24 00:00 2 06/21/24 23:54 06/21/24 23:54 06/21/24 22:58 2 06/21/24 22:00 2 06/21/24 21:00 2 06/21/24 20:00 06/21/24 20:00 2 06/21/24 20:00 06/21/24 20:00 06/21/24 18:05 06/21/24 18:05 06/21/24 18:05 3 06/21/24 18:00 2 06/21/24 17:00 2 06/21/24 16:00 06/21/24 16:00 2 06/21/24 16:00 2 06/21/24 15:00 2 06/21/24 14:00 2 06/21/24 13:00 2 06/21/24 13:00 2 Intake and Output 06/21/24 06/22/24 06/22/24 23:59 07:59 15:59 Intake Total 858 / 1608 750 / 1608 Output Total 900 / 1200 350 / 350 Balance -900 / 1957 508 / 1258 750 / 1258 Intake: Intake, Oral Amount 600 / 600 Intake, Total IV Amount 858 / 1008 150 / 1008 Cefepime HCl 2 gm In 0.9 % 100 / 200 100 / 200 Sodium Chloride 100 ml @ 200 mls/hr IV Q12H [facility] Rx#:[id number] Magnesium Sulfate 2 gm Thiamine 758 / 758 HCl 100 mg Mvi, Adult No.1 with Vit K 10 ml In Lactated Ringers 1000ML 1,000 ml @ 50 mls/hr IV ONCE ONE Rx#:[id number] Phytonadione 10 mg In 0.9 % 50 / 50 Sodium Chloride 50 ml @ 100 mls /hr IV ONCE ONE Rx#:[id number] Output: Output, U
[2024-06-23] VITALS (54 sets, daily range): BP systolic 75–110; BP diastolic 50–72; PULSE 70–164; RESP 16–24; TEMP 36.6–37; O2SAT 91–99; BMI 32.5
--- NOTE | 2024-06-23 00:17 | ECG_ITS ---
APPROVED REPORT Exam: Resting ECG HR:158 bpm ECG Measurements Heart Rate 158 AXES QRSd 84 QRS 27 QT 284 T -38 QTc 372 Conclusion ATRIAL FIBRILLATION WITH RAPID VENTRICULAR RESPONSE POSSIBLE RIGHT VENTRICULAR CONDUCTION DELAY [RSR (QR) IN V1/V2] NONSPECIFIC ST & T-WAVE ABNORMALITY CRITICAL TEST RESULT UNCONFIRMED REPORT Electronically signed by : Tristan Delacruz MD 06/24/2024 08:56:53
--- NOTE | 2024-06-23 00:20 | PC.NURSE ---
Addendum entered by Jr Eldridge RN 06/23/24 00:22: contacting time was not 2315, but 0015 Original Note: JB Martinez contacted at 2315 to notify him patient is in Afib RVR sustaining rates 145-160
--- NOTE | 2024-06-23 00:25 | PC.NURSE ---
CORE OVEN TENDER at bedside now
--- NOTE | 2024-06-23 00:33 | PC.NURSE ---
MOBILE HOMES REPAIRER at bedside giving verbal order to initiate Amio per protocol. Labetolol push not effective
--- NOTE | 2024-06-23 00:54 | PC.NURSE ---
Lab contacted for STAT orders; Verbal orders placed per HYDRAULICS TEACHER at bedside. Patient still in Afib RVR rates 140-150, NAD
--- NOTE | 2024-06-23 01:11 | PC.NURSE ---
Verbal order for 150mg Amio push per JB Martinez
[2024-06-23 01:12] LABS: Basophils % 0.2 % (0.1-2.0); Eosinophils % 0.6 % (0.1-12.0); Hematocrit 26.6 % (42.0-52.0); Hemoglobin 8.8 g/dL (14.1-18.0); Lymphocytes # 0.8 K/mm3 (0.7-4.5); Mean Corpuscular HGB Conc 33.2 g/dL (31.8-35.4); Mean Corpuscular Volume 93.3 fl (80-94); Mean Platelet Volume 9.1 fl (7.4-10.4); Monocytes # 0.5 K/mm3 (0.1-1.0); Monocytes % 6.7 % (1.7-9.3); Neutrophils # 5.5 K/mm3 (1.8-7.8); Neutrophils % 80.5 % (37.0-80.0); Platelet Count 99 K/mm3 (142-424); Red Blood Count 2.85 M/mm3 (4.60-6.20); Red Cell Distribution Width 14.5 % (11.5-17.5); White Blood Count 6.8 K/mm3 (4.8-10.8)
--- NOTE | 2024-06-23 01:13 | PC.NURSE ---
JB speaking to ER doctor at this time. Patient placed on ZOLL. He is experiencing light headedness and chest pain
[2024-06-23 01:16] LABS: Anion Gap 7.3 mEq/L (5-15); Blood Urea Nitrogen 16 mg/dl (9-20); Carbon Dioxide 29 mmol/L (22.0-30.0); Chloride 100 mmol/L (98-107); Creatinine Clearance Estimated 160 mL/min (50-200); Estimated Glomerular Filt Rate 117 ml/min (>60); GFR (African American) 141 ML/MIN (>60); Glucose 125 mg/dl (74-100); Magnesium 1.7 mg/dl (1.6-2.3); Potassium 3.3 mmoL/L (3.5-5.1); Sodium 133 mmol/L (136-145)
[2024-06-23 01:29] LABS: Troponin I < 0.01 ng/ml (0.00-0.034)
--- NOTE | 2024-06-23 01:32 | PC.NURSE ---
Addendum entered by Jr Eldridge RN 06/23/24 19:37: Not JB Chavez, but JB Martinez Original Note: Cardiology paged at this time for JB Chavez
--- NOTE | 2024-06-23 01:36 | PC.NURSE ---
JB speaking to Erin
--- NOTE | 2024-06-23 01:48 | ECG_ITS ---
APPROVED REPORT Exam: Resting ECG HR:123 bpm ECG Measurements Heart Rate 123 AXES QRSd 82 QRS 26 QT 343 T -16 QTc 416 Conclusion ATRIAL FIBRILLATION WITH RAPID VENTRICULAR RESPONSE ABNORMAL RHYTHM ECG INTERPRETATION BASED ON A DEFAULT AGE OF 40 YEARS UNCONFIRMED REPORT Electronically signed by : Tristan Delacruz MD 06/24/2024 08:56:46
--- NOTE | 2024-06-23 01:50 | CA_ITS ---
APPROVED REPORT EXAM: Comprehensive 2D, Doppler, and color-flow Echocardiogram Barrel Painter: Kelly Metzger CRT Ht: 5 ft 8 in Wt: 212lbs BSA: 2.10 BP: 92/52 mmHg Indications: Afib, COPD, Peripheral Edema, Pleural Effusion, cirrhosis, nephrectomy kidney ca, Alcohol use, Ascities, pleural effusion, paracentesis Cardioversion x 6 overnight 2D Dimensions Left Atrium 4.06 cm LVEF (Polanco's) 66.10 % LVOT 2.15 cm (M/F) 1.5-2.5 LV Volume 98.20 mL LA Volume 36.20 mL LA Volume Index 17.20 mL/m2 (M/F) 16-34 EF AP4 64.70 % EF AP2 64.3 % EF BP 66.1 % GL Strain -24.1 % M-Mode Dimensions RVDd 3.58 cm (0.9-2.6) LVDd 4.45 cm (3.5-5.7) Ao Diam 4.09 cm (2.0-3.7) LVDs 2.34 cm (3.5-5.7) IVSd 1.64 cm (0.6-1.1) PWd 0.90 cm (0.6-1.1) EF (Teich) 79.00% FS 47.40% EDV (Teich) 90.10 mL TAPSE 1.98 (<1.7) ESV (Teich) 18.90 mL LV Diastology E Decel Time 189 (160-240 msec) E/A Ratio 7.72 LAT E' 12.4 (>= 10 cm/sec) LAT A' 5.20 cm/s E/LAT E' Ratio 8.72 (<= 14) Aortic Valve AoV Peak Atilio. 135.0 (50-130 cm/s) AO Peak GR. 7.40 mmHg Mitral Valve MV E Max Atilio. 108.0 (40-130 cm/s) MV A Velocity 14.0 (40-130 cm/s) E/A Ratio 7.72 MV Decel. Time 189 (160-240 ms) Tricuspid Valve TR P. Velocity 307.00 cm/s RAP Estimate 10.00 mmHg RVSP 47.70 mmHg Left Ventricle The left ventricle is normal size. The left ventricular systolic function is normal. The left ventricular ejection fraction is within the normal range. There is increased open wall thickness. There is normal LV segmental wall motion. Diastolic function is indeterminate. LVEF is 55%. Right Ventricle Right ventricle is mildly dilated. The right ventricular systolic function is normal. Atria Left atrium is mildly dilated. Right atrium is mildly dilated. There is no Doppler evidence of interatrial shunt. Aortic Valve The aortic valve opens well. There is no aortic valvular stenosis. Trace aortic regurgitation is present. Mitral Valve The mitral valve is normal in structure. No evidence of mitral valve stenosis. Mild mitral valve regurgitation noted. Tricuspid Valve The tricuspid valve leaflets are thin and pliable. Mild tricuspid regurgitation. RVSP is 25-30 mmHg. Pulmonic Valve The pulmonary valve is normal in structure. Trace pulmonic regurgitation. Great Vessels The aortic root is normal in size. The ascending aorta is normal in size. The IVC is dilated, but collapses > 50% with respirophasic variation. RA pressures estimated at 8 mmHg. Pericardium Trivial, posterior pericardial effusion. No echo indications of tamponade. Abdominal ascites is noted. Other Information Study Quality: Fair Conclusion Normal biventricular systolic function. Mild RV dilation. Biatrial dilation. Mild MR, mild TR. RVSP 25-30 mmHg. Trivial, posterior pericardial effusion. No echo indications of tamponade. Abdominal ascites is incidentally noted. Electronically signed by : Negra Hayes MD 06/23/2024 12:59:14
--- NOTE | 2024-06-23 01:57 | XR_ITS ---
PROCEDURE INFORMATION: Exam: XR Chest Exam date and time: 06/23/2024 2:02 AM Age: 54 years old Clinical indication: Pain; Chest pressure; Additional info: Chest pain, afib rvr TECHNIQUE: Imaging protocol: Radiologic exam of the chest. Views: 1 view. COMPARISON: CR XR CHEST PORTABLE 06/20/2024 9:20 PM FINDINGS: Lungs: Lung volumes are mild to moderately diminished. There are a few increased markings in the left lower lobe, mildly increased since prior exam. A few minimally increased markings in the right lower lobe are stable. No new focal areas of consolidation. Pleural spaces: No pleural effusions. Negative for pneumothorax. Heart/Mediastinum: Cardiac silhouette and pulmonary vasculature are within range of normal. There is mild azygous venous distension. Bones/joints: There is no evidence of acute fracture. IMPRESSION: 1. Mild to moderately diminished lung volumes. 2. Minor increase in patchy and linear markings in the left lower lobe since prior exam.
--- NOTE | 2024-06-23 02:22 | EXP.EVENT.NO ---
I was called to bedside by the provider for this patient. Patient was admitted at the time and I was informed he had been admitted for findings consistent with hepatic encephalopathy. Patient had been diuresed with improvement of peripheral edema, however he had new onset A-fib with RVR for which I was consulted. Patient's primary provider had already attempted Lopressor injection which decreased the patient's blood pressure but did not rate control his A-fib with RVR. Provider wanted to cardiovert the patient. I suggested ketamine for mild sedation and pain management, this medication would also not decrease his blood pressure like other sedating medications. Patient continued to be in A-fib with RVR with rates in the 120s to 150s and hypotensive with systolics of 80-90. Multiple attempts to cardiovert the patient with increasing Joules were performed by the primary provider. There were 2 attempts at 50 J, 1 attempt at 150 J, and 1 attempt at 200 J. These were all unsuccessful. Provider and I discussed the options of other rate control medication such as diltiazem, however we have continued concern for hypotension and that the diltiazem may further worsen this. In this case, a pressor would also be necessary. Dr. Greenwood with cardiology was consulted for further input on the patient. Patient has not seen cardiology during this admission. He recommended 3 additional attempts at 200 J. These were performed again by the primary provider while I was at bedside and the patient had brief resolution of his A-fib/RVR after each attempt, he never sustained a regular rate or rhythm and always quickly rebounded into A-fib with RVR. Dr. Greenwood reviewed patient's admission ECG and was reassured by it. He requested a bedside echo which I performed. See procedure details below. This demonstrated grossly normal ejection fraction. We also discussed patient having diuresis which should have hemoconcentrated the patient and increased his hemoglobin, however his hemoglobin is downtrending. There is no known site of bleeding, however I recommended Protonix be administered prophylactically and that Hemoccult be performed. Dr. Greenwood did recommend diltiazem and Lucien-Synephrine for rate control and blood pressure management. Patient is also receiving additional fluid bolus to replete part of what has been removed with diuresis. These medications are being administered. These have improved patient's blood pressure and somewhat improved his heart rate though he does continue to be in A-fib with RVR. Patient has tolerated all procedures well and recovered from the ketamine well. He is back to his preprocedural mental baseline. Dr. Greenwood anticipating evaluating the patient in the morning and may attempt cardioversion again. Limited Cardiac Ultrasound Indication: Arrhythmia Identified cardiac views: Parasternal long axis, parasternal short axis, apical four-chamber Findings: Cardiac activity present with no gross wall motion abnormality, no pericardial effusion, no obvious right heart strain, ejection fraction grossly normal with full opening of the mitral valve to the septum Impression: Tachycardic but otherwise unremarkable limited cardiac ultrasound Images were saved to permanent archive The study was technically adequate CPT: 44604 This study was performed by me, and I personally interpreted all images/videos. Based on my clinical judgement, these images were adequate and did not necessitate further imaging. Critical care time: 35 minutes On 06/22/24, the high probability of a clinically significant, sudden or life threatening deterioration of the following system(s) (cardiac) required my full and direct attention, intervention and personal management. The time I documented below is in addition to time spent performing reported procedures but includes the following listed in this critical care notation.
--- NOTE | 2024-06-23 02:46 | PC.NURSE ---
Cardioversion Event: 0124: Ketamine 50mg IVP 50j shock synchronized cardioversion, non-effective 0125: 50j shock synchronized cardioversion, non-effective 0126: 50j shock synchronized cardioversion, non-effective 0127: Still afib rvr Ketamine 50mg IVP 150j shock synchronized cardioversion, non-effective 0131: 200j shock synchronized cardioversion, non-effective JB Martinez speaking with Dr. Greenwood (cardiology) on the phone-- verbal/telephone orders being placed by documenting RN 0140: 200j shock synchronized cardioversion, non-effective 0142: 200j shock synchronized cardioversion, effective for approximately 20 seconds with HR dropping into the 80's, but HR back into 140's 0145: 200j shock synchronized cardioversion, effective with getting patient's HR below 120, but still Afib. Patient medicated per JAN and tolerating well. Ketamine is wearing off, GCS 15
--- NOTE | 2024-06-23 03:02 | EXP.PN ---
Subjective *Date: 06/23/24 *Time: 03:06 Interval history: At approximately 1 PM patient's heart rate increased up to the 140s 150s and went into A-fib. Came into the room with the nurse, checked everything that we could patient was alert and oriented and doing well but was definitely in A-fib with RVR. Only other event was this is last night he had about 10 seconds of A-fib but then went right back to sinus rhythm, we have been pulling a lot of fluid off of him due to all of his third spacing and liver disease kidney disease. Exam Data for Last 24 hours Vital signs and Labs for Last 24 Hours: Temp Pulse Resp BP Pulse Ox O2 Del Method O2 Flow Rate 98.2 F 110 H 19 93/60 L 94 L Nasal Cannula 3 06/22/24 23:36 06/23/24 02:45 06/23/24 02:45 06/23/24 02:45 06/23/24 02:45 06/23/24 02:45 06/23/24 02:45 Laboratory Results - last 24 hr 06/22/24 05:36: WBC 7.8, RBC 2.76 L, Hgb 8.6 L, Hct 25.4 L, MCV 91.9, MCH 31.1, MCHC 33.9, RDW 14.5, Plt Count 100 L, MPV 8.2, Neut % (Auto) 89.0 H, Lymph % (Auto) 6.4 L, [place] % (Auto) 4.4, Eos % (Auto) 0.1, Baso % (Auto) 0.1, Neut # (Auto) 7.0, Lymph # (Auto) 0.5 L, [place] # (Auto) 0.4, Eos # (Auto) 0.0, Baso # (Auto) 0.0, Total Counted 100, Neutrophils % (Manual) 93 H, Lymphocytes % (Manual) 6 L, Monocytes % (Manual) 1 L, Platelet Estimate Slight decrease, RBC Morphology Normal, PT 21.8 H, INR 2.09 H, Sodium 133 L, Potassium 3.6, Chloride 103, Carbon Dioxide 28, Anion Gap 5.6, BUN 18 D, Creatinine 0.80, Estimated Creat Clear 137, Estimated GFR 100, Est GFR ( Amer) 121, Glucose 132 H, Calcium 8.2 L, Magnesium 1.9, Total Bilirubin 4.2 H, AST 69 H, ALT 29 D, Alkaline Phosphatase 88, Total Protein 5.8 L, Albumin 2.3 L, Globulin 3.5 H, Albumin/Globulin Ratio 0.7 L 06/23/24 00:57: WBC 6.8, RBC 2.85 L, Hgb 8.8 L, Hct 26.6 L, MCV 93.3, MCH 31.0, MCHC 33.2, RDW 14.5, Plt Count 99 L, MPV 9.1, Neut % (Auto) 80.5 H, Lymph % (Auto) 12.0, [place] % (Auto) 6.7, Eos % (Auto) 0.6, Baso % (Auto) 0.2, Neut # (Auto) 5.5, Lymph # (Auto) 0.8, [place] # (Auto) 0.5, Eos # (Auto) 0.0, Baso # (Auto) 0.0, Sodium 133 L, Potassium 3.3 L, Chloride 100, Carbon Dioxide 29, Anion Gap 7.3, BUN 16, Creatinine 0.70, Estimated Creat Clear 160, Estimated GFR 117, Est GFR ( Amer) 141, Glucose 125 H, Calcium 8.0 L, Magnesium 1.7 D, Troponin I < 0.01 I & O for Last 24 hours: Intake & Output 06/20/24 06/21/24 06/22/24 06/23/24 23:59 23:59 23:59 23:59 Intake Total 2299 / 3157 2168 / 2368 205 / 205 Output Total 1200 / 1200 2575 / 3575 1000 / 1000 Balance 1099 / 1957 -407 / -1207 -795 / -795 Weight 63.503 kg 93.7 kg 96.252 kg Microbiology Reports for the Last 24 Hours: Microbiology 06/20/24 23:23 Peritoneal Fluid Body Fluid Culture - Preliminary Radiology Reports for the Last 24 Hours: Bedside echo done by emergency room physician showed no significant problems with cardiac ejection fraction Constitutional Constitutional: no acute distress Comments: The patient is lying in the bed showing no distress talking clearly actually watching television. He reports no chest pain or significant shortness of breath and looks very comfortable, *Routine Respiratory Exam Comments: Lungs are clear at this time equal expansion bilaterally no signs of rales or rhonchi patient's O2 sat were at 93 just placed him on 2 L nasal cannula as a precaution saturations increased up to 9596 *Routine Cardiovascular Exam Comments: The rate is irregular he is in A-fib on the monitor. He does have a palpable pulse slightly irregular in both radial area, skin remaining pink brisk capillary refills at hand nailbeds Patient noted as having less than half of the edema in his lower extremities as he did 2 days ago, there has been 1600 cc taken off during the shift before the A-fib started Blood pressure holding in the 90s *Routine Abdominal Exam Abdominal: Present soft Comments: Abdomen exam really unchanged just mild tenderness if I press h
--- NOTE | 2024-06-23 04:55 | PC.NURSE ---
Patient had an uneventful beginning of the shift until midnight. Patient went in to Afib with RVR rates 140-160. EKG obtained while calling the shift supervisor film processing FLATBED OWNER OPERATOR to bedside. See all previous notes and event note regarding time spent with patient during critical episode. Patient is now stabilized. Adequate urinary output via shore catheter. Heart, lung, abdominal sounds WNL. Patient is now on Amio, Diltiazem, and Lucien-synephrine per JAN. Heart rate remains <120, but still in Atrial Fib. Patient appears to be sleeping now with even/unlabored respirations on 3L/NC.
[2024-06-23 06:14] LABS: INR 1.56 (0.9-1.1); Prothrombin Time 16.7 seconds (10.1-12.5)
[2024-06-23 06:24] LABS: Albumin Level 2.5 g/dl (3.5-5.0); Chloride 102 mmol/L (98-107); Potassium 3.4 mmoL/L (3.5-5.1); Sodium 133 mmol/L (136-145)
[2024-06-23 06:27] LABS: Alanine Aminotransferase 37 U/L (12-78); Albumin/Globulin Ratio 0.7 (1.1-1.8); Alkaline Phosphatase 199 U/L (38-126); Anion Gap 5.4 mEq/L (5-15); Aspartate Amino Transferase 91 U/L (17-59); Bilirubin,Total 4.1 mg/dl (0.2-1.3); Blood Urea Nitrogen 15 mg/dl (9-20); Calcium 7.9 mg/dl (8.4-10.2); Carbon Dioxide 29 mmol/L (22.0-30.0); Creatinine Clearance Estimated 162 mL/min (50-200); Estimated Glomerular Filt Rate 117 ml/min (>60); GFR (African American) 141 ML/MIN (>60); Globulin 3.7 g/dL (1.3-3.2); Glucose 110 mg/dl (74-100); Total Protein,Serum 6.2 g/dl (6.3-8.2)
[2024-06-23 06:28] LABS: Magnesium 1.8 mg/dl (1.6-2.3)
[2024-06-23 06:55] LABS: Eosinophils # 0.1 K/mm3 (0.0-0.4); Mean Corpuscular HGB Conc 32.4 g/dL (31.8-35.4); Monocytes # 0.6 K/mm3 (0.1-1.0)
[2024-06-23 07:02] LABS: Basophils % 0.3 % (0.1-2.0); Eosinophils % 1.3 % (0.1-12.0); Lymphocytes # 0.9 K/mm3 (0.7-4.5); Lymphocytes % 9.4 % (10-50); Mean Corpuscular Hemoglobin 29.9 pg (27.0-31.2); Mean Corpuscular Volume 92.1 fl (80-94); Mean Platelet Volume 8.8 fl (7.4-10.4); Monocytes % 6.3 % (1.7-9.3); Neutrophils # 8.2 K/mm3 (1.8-7.8); Neutrophils % 82.7 % (37.0-80.0); Platelet Count 126 K/mm3 (142-424); Red Blood Count 3.26 M/mm3 (4.60-6.20); Red Cell Distribution Width 14.6 % (11.5-17.5); White Blood Count 9.9 K/mm3 (4.8-10.8)
[2024-06-23 07:06] LABS: Hemoglobin 9.7 g/dL (14.1-18.0)
--- NOTE | 2024-06-23 09:27 | PC.NURSE ---
urine noted to have potentially been leaking from around catheter. additional 5ml of saline added to inflation port on catheter. 2329
--- NOTE | 2024-06-23 12:49 | EXP.ACUTE.PN ---
Subjective *Date: 06/23/24 *Time: 19:46 Interval history: Patient still feeling fatigued this morning. Heart rate better controlled, sinus rhythm today. Wore 2 L oxygen overnight. Denies any fever. No nausea or vomiting. Having good urine output. Received fluids overnight however and still has significant edema. No nausea or vomiting. Does complain of some chest soreness after being cardioverted last night. Medical Exam Vital signs and Labs for Last 24 Hours: Vital Signs Temp Pulse Pulse Pulse Resp BP BP 06/23/24 12:10 86 06/23/24 12:00 97.8 F 06/23/24 12:00 80 06/23/24 12:00 76 20 104/66 L 06/23/24 11:40 75 06/23/24 11:40 77 06/23/24 11:00 74 22 102/64 L 06/23/24 11:00 06/23/24 10:00 76 22 101/57 L 06/23/24 09:32 06/23/24 09:00 80 20 101/65 L 06/23/24 08:00 80 06/23/24 08:00 83 20 110/70 06/23/24 08:00 98.5 F 06/23/24 07:30 106 H 22 108/67 L 06/23/24 07:25 96 H 06/23/24 06:19 85 06/23/24 06:19 87 06/23/24 06:19 06/23/24 06:00 92 H 16 92/59 L 06/23/24 05:30 97 H 17 100/61 L 06/23/24 05:00 100 H 16 91/55 L 06/23/24 04:30 106 H 16 94/62 L 06/23/24 04:00 90 06/23/24 04:00 101 H 18 95/58 L 06/23/24 04:00 98.5 F 06/23/24 03:00 109 H 18 95/58 L 06/23/24 02:45 110 H 19 93/60 L 06/23/24 02:40 115 H 21 90/65 L 06/23/24 02:30 105 H 18 93/59 L 06/23/24 02:25 110 H 20 92/66 L 06/23/24 02:20 107 H 19 94/67 L 06/23/24 02:15 107 H 19 92/71 L 06/23/24 02:10 115 H 20 83/66 L 06/23/24 02:05 109 H 20 75/57 L 06/23/24 02:00 124 H 20 77/58 L 06/23/24 01:46 129 H 20 83/55 L 06/23/24 01:43 75 20 91/58 L 06/23/24 01:38 138 H 22 105/72 L 06/23/24 01:15 154 H 20 93/63 L 06/23/24 01:03 150 H 24 92/65 L 06/23/24 00:55 89/54 L 06/23/24 00:50 158 H 20 83/57 L 06/23/24 00:40 147 H 18 85/61 L 06/23/24 00:35 147 H 18 92/66 L 06/23/24 00:30 143 H 19 86/60 L 06/23/24 00:27 150 H 16 86/65 L 06/23/24 00:25 98/55 L 06/23/24 00:18 164 H 19 98/59 L 06/23/24 00:00 90 06/23/24 00:00 96 H 20 92/55 L 06/22/24 23:36 98.2 F 06/22/24 23:05 91 H 06/22/24 23:05 88 06/22/24 22:00 85 14 103/67 L 06/22/24 20:00 100 H 06/22/24 20:00 98.6 F 06/22/24 18:16 90 06/22/24 18:16 96 H 06/22/24 18:16 06/22/24 18:00 89 20 95/65 L 06/22/24 16:36 06/22/24 16:00 90 06/22/24 16:00 101 H 20 98/64 L 06/22/24 15:55 06/22/24 15:00 06/22/24 14:00 96 H 20 96/64 L 06/22/24 13:00 Pulse Ox O2 Del Method O2 Flow Rate 06/23/24 12:10 95 Nasal Cannula 1 06/23/24 12:00 06/23/24 12:00 06/23/24 12:00 95 Nasal Cannula 1 06/23/24 11:40 06/23/24 11:40 06/23/24 11:00 96 Nasal Cannula 2 06/23/24 11:00 Nasal Cannula 3 06/23/24 10:00 95 Nasal Cannula 2 06/23/24 09:32 Nasal Cannula 3 06/23/24 09:00 96 Nasal Cannula 2 06/23/24 08:00 06/23/24 08:00 92 L Nasal Cannula 2 06/23/24 08:00 06/23/24 07:30 93 L Nasal Cannula 2 06/23/24 07:25 91 L Nasal Cannula 2 06/23/24 06:19 06/23/24 06:19 06/23/24 06:19 97 Nasal Cannula 3 06/23/24 06:00 93 L Nasal Cannula 3 06/23/24 05:30 97 Nasal Cannula 3 06/23/24 05:00 93 L Nasal Cannula 3 06/23/24 04:30 93 L Nasal Cannula 3 06/23/24 04:00 06/23/24 04:00 94 L Nasal Cannula 3 06/23/24 04:00 06/23/24 03:00 95 Nasal Cannula 3 06/23/24 02:45 94 L Nasal Cannula 3 06/23/24 02:40 96 Nasal Cannula 3 06/23/24 02:30 96 Nasal Cannula 3 06/23/24 02:25 95 Nasal Cannula 3 06/23/24 02:20 95 Nasal Cannula 3 06/23/24 02:15 96 Nasal
--- NOTE | 2024-06-23 13:44 | EXP.CARD.CON ---
History of Present Illness History of Present Illness Consult date: 06/23/24 Requesting physician: Baljinder Rinaldi Consult reason: atrial fibrillation Chief complaint: Weakness and shortness of breath History of present illness: 54-year-old white male without known cardiovascular disease who has a history of alcoholic cirrhosis presented to the ER with worsening weakness and some confusion. He was admitted with decompensated alcoholic cirrhosis with encephalopathy and ascites, autoanticoaguled with INR 2.09. Patient is reportedly sober for several months, recent [facility] stay. No withdrawal. He was admitted overnight for observation. Reportedly patient went into A-fib RVR last night and required several emergent cardioversions by building drafter. He was started on amio diltiazem and Lucien-Synephrine. This morning but patient is in normal sinus rhythm. 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 2D echo here this morning shows normal EF, no significant valve disease. [facility] Disclaimer: The information contained in this section may have been updated after the patient was seen, as this information can be updated by other users. Medical History Renal cell cancer Surgical History History of surgery on left wrist Hx of kidney removal Family History Other Cancer Social History Smoking Status: Current every day smoker tobacco type: cigarettes packs per day: 1 years smoked: 50 alcohol intake: former current occupational status: unemployed Travel in the last 8 weeks: None household members: none housing: other lives independently: Yes (pt states he lives in a camper ) marital status: single group home: No Review of Systems Constitutional Constitutional: Reports weakness Eyes Eyes: Denies loss of vision ENT Ears, Nose, Mouth, and Throat: Denies hearing loss *Cardiovascular Cardiovascular: Denies chest pain and Denies dyspnea *Respiratory Respiratory: Denies cough and Denies dyspnea *Gastrointestinal Gastrointestinal: Denies change in stool character, Denies nausea and Denies vomiting *Genitourinary Genitourinary: Denies difficulty urinating *Musculoskeletal Musculoskeletal: Denies muscle weakness Integumentary/Breasts Skin/Breast: Denies changing lesions *Neurologic Neurologic: Reports as per HPI, Reports behavioral changes, Reports confusion, Denies loss of vision, Reports memory loss and Reports weakness Psychiatric Psychiatric: Reports behavioral changes, Reports confusion and Reports memory loss Exam Data for Last 24 hours Vital signs and Labs for Last 24 Hours: Temp Pulse Resp BP Pulse Ox O2 Del Method O2 Flow Rate 97.8 F 81 20 102/68 L 95 Nasal Cannula 1 06/23/24 12:00 06/23/24 13:00 06/23/24 13:00 06/23/24 13:00 06/23/24 13:00 06/23/24 13:05 06/23/24 13:05 Laboratory Results - last 24 hr 06/23/24 00:57: WBC 6.8, RBC 2.85 L, Hgb 8.8 L, Hct 26.6 L, MCV 93.3, MCH 31.0, MCHC 33.2, RDW 14.5, Plt Count 99 L, MPV 9.1, Neut % (Auto) 80.5 H, Lymph % (Auto) 12.0, [place] % (Auto) 6.7, Eos % (Auto) 0.6, Baso % (Auto) 0.2, Neut # (Auto) 5.5, Lymph # (Auto) 0.8, [place] # (Auto) 0.5, Eos # (Auto) 0.0, Baso # (Auto) 0.0, Sodium 133 L, Potassium 3.3 L, Chloride 100, Carbon Dioxide 29, Anion Gap 7.3, BUN 16, Creatinine 0.70, Estimated Creat Clear 160, Estimated GFR 117, Est GFR ( Amer) 141, Glucose 125 H, Calcium 8.0 L, Magnesium 1.7 D, Troponin I < 0.01 06/23/24 05:33: WBC 9.9 D, RBC 3.26 L, Hgb 9.7 L D, Hct 30.0 L, MCV 92.1, MCH 29.9, MCHC 32.4, RDW 14.6, Plt Count 126 L D, MPV 8.8, Neut % (Auto) 82.7 H, Lymph % (Auto) 9.4 L, [place] % (Auto) 6.3, Eos % (Auto) 1.3, Baso % (Auto) 0.3, Neut # (Auto) 8.2 H, Lymph # (Auto) 0.9,
--- NOTE | 2024-06-23 17:00 | PC.NURSE ---
pt has remained in bed this shift. pt was able to stand at bedside with PT twice this shift. pt is a/o x 4. skin is noted to be jaundiced and sclera of eyes yellowed as well. pt has redness and edema noted to cami hips and ble. pt has nystatin powder being applied to groin and scrotal area. pt is currently on 1 lpm. pt has been able to be weaned off of Diltiazem and amiodarone was dc'd r/t hx of cirrhosis. pt lungs are clear with fine crackles in r base. bowel sounds are active in all quads. pt was able to have a small bm this afternoon. pt has dark straw colored urine draining via shore catheter. pt is receiving bumex iv.
[2024-06-24] VITALS (31 sets, daily range): BP systolic 87–114; BP diastolic 48–80; PULSE 68–98; RESP 15–22; TEMP 36.6–37.2; O2SAT 85–96; BMI 33.1
--- NOTE | 2024-06-24 04:19 | PC.NURSE ---
The patient has remained stable throughout this shift. He remains on Lucien-synephrine which is currently running at 20mcg per JAN. Systolic BP's are >90; however, they're not above 100. NSR with few unifocal PVC's noted throughout tele monitoring. Adequate urinary output through shore catheter. Patient had 2 adequately formed bowel movements on the bedside commode. He is requiring stand-by/assist x1 getting up and down from his bed. Patient is a/o x3, GCS 15. ICU care continues.
[2024-06-24 06:12] LABS: Basophils % 0.5 % (0.1-2.0); Eosinophils # 0.2 K/mm3 (0.0-0.4); Eosinophils % 3.3 % (0.1-12.0); Hematocrit 28.2 % (42.0-52.0); Hemoglobin 9.5 g/dL (14.1-18.0); Lymphocytes # 1.2 K/mm3 (0.7-4.5); Lymphocytes % 22.1 % (10-50); Mean Corpuscular HGB Conc 33.7 g/dL (31.8-35.4); Mean Corpuscular Hemoglobin 30.8 pg (27.0-31.2); Mean Corpuscular Volume 91.4 fl (80-94); Mean Platelet Volume 8.4 fl (7.4-10.4); Monocytes # 0.6 K/mm3 (0.1-1.0); Monocytes % 11.9 % (1.7-9.3); Neutrophils # 3.3 K/mm3 (1.8-7.8); Neutrophils % 62.2 % (37.0-80.0); Platelet Count 96 K/mm3 (142-424); Red Blood Count 3.09 M/mm3 (4.60-6.20); Red Cell Distribution Width 14.7 % (11.5-17.5); White Blood Count 5.3 K/mm3 (4.8-10.8)
[2024-06-24 06:17] LABS: Albumin Level 2.3 g/dl (3.5-5.0); Chloride 103 mmol/L (98-107); Potassium 3.6 mmoL/L (3.5-5.1); Sodium 132 mmol/L (136-145)
[2024-06-24 06:18] LABS: INR 1.59 (0.9-1.1)
[2024-06-24 06:20] LABS: Alanine Aminotransferase 41 U/L (12-78); Albumin/Globulin Ratio 0.7 (1.1-1.8); Alkaline Phosphatase 182 U/L (38-126); Anion Gap 4.6 mEq/L (5-15); Aspartate Amino Transferase 96 U/L (17-59); Blood Urea Nitrogen 10 mg/dl (9-20); Carbon Dioxide 28 mmol/L (22.0-30.0); Creatinine Clearance Estimated 193 mL/min (50-200); Estimated Glomerular Filt Rate 139 ml/min (>60); GFR (African American) 169 ML/MIN (>60); Globulin 3.5 g/dL (1.3-3.2); Total Protein,Serum 5.8 g/dl (6.3-8.2)
[2024-06-24 06:21] LABS: Calcium 7.6 mg/dl (8.4-10.2); Glucose 90 mg/dl (74-100)
[2024-06-24 06:26] LABS: Magnesium 1.6 mg/dl (1.6-2.3)
--- NOTE | 2024-06-24 14:41 | EXP.CARD.PN ---
Subjective Subjective Date: 06/24/24 Time: 10:00 Interval history: No events overnight. Patient started p.o. meds and is weaned down to 10 mg kristen. Exam Data for Last 24 hours Vital signs and Labs for Last 24 Hours: Temp Pulse Resp BP Pulse Ox O2 Del Method O2 Flow Rate 97.9 F 96 H 22 114/72 93 L Nasal Cannula 1 06/24/24 12:00 06/24/24 13:00 06/24/24 13:00 06/24/24 13:00 06/24/24 13:00 06/24/24 13:21 06/24/24 13:21 Laboratory Results - last 24 hr 06/21/24 03:53: Opiates Screen TNP, Oxycodone TNP, Propoxyphene Screen TNP, Barbiturates Qual TNP, Phencyclidine Screen TNP, Amphetamines Screen TNP, Benzodiazepines TNP, Cocaine & Metabolite TNP, Marijuana (THC) Screen TNP 06/24/24 05:27: WBC 5.3 D, RBC 3.09 L, Hgb 9.5 L, Hct 28.2 L, MCV 91.4, MCH 30.8, MCHC 33.7, RDW 14.7, Plt Count 96 L, MPV 8.4, Neut % (Auto) 62.2, Lymph % (Auto) 22.1, [place] % (Auto) 11.9 H, Eos % (Auto) 3.3, Baso % (Auto) 0.5, Neut # (Auto) 3.3, Lymph # (Auto) 1.2, [place] # (Auto) 0.6, Eos # (Auto) 0.2, Baso # (Auto) 0.0, PT 17.0 H, INR 1.59 H, Sodium 132 L, Potassium 3.6, Chloride 103, Carbon Dioxide 28, Anion Gap 4.6 L, BUN 10 D, Creatinine 0.60 L, Estimated Creat Clear 193, Estimated GFR 139, Est GFR ( Amer) 169, Glucose 90, Calcium 7.6 L, Magnesium 1.6 D, Total Bilirubin 4.0 H, AST 96 H, ALT 41, Alkaline Phosphatase 182 H, Total Protein 5.8 L, Albumin 2.3 L, Globulin 3.5 H, Albumin/Globulin Ratio 0.7 L I & O for Last 24 hours: Intake & Output 06/21/24 06/22/24 06/23/24 06/24/24 23:59 23:59 23:59 23:59 Intake Total 2299 / 3157 2168 / 2368 2718.497 / 2748.497 1068.382 / 1068.382 Output Total 1200 / 1200 2575 / 3575 4140 / 4240 1810 / 1810 Balance 1099 / 1957 -407 / -1207 -1421.503 / -1491.503 -741.618 / -741.618 Weight 206 lb 9.17 oz 212 lb 3.2 oz 214 lb 6.4 oz 218 lb 8 oz Microbiology Reports for the Last 24 Hours: Microbiology 06/20/24 23:23 Peritoneal Fluid Gram Stain - Final 06/20/24 23:23 Peritoneal Fluid Body Fluid Culture - Preliminary Constitutional Constitutional: no acute distress, obese and cooperative *Routine HEENT Exam Eye: Present PERRL *Routine Respiratory Exam Respiratory: Present CTA bilaterally; Absent accessory muscle use, wheezes or crackles *Routine Cardiovascular Exam Cardiovascular: Present RRR, Normal S1 and Normal S2; Absent murmur, gallop or rubs *Routine Abdominal Exam Abdominal: Present soft; Absent tenderness Comments: distended *Routine Extremities Exam Extremities: Present pulses intact; Absent cyanosis or edema *Routine Skin Exam Skin: Present intact and jaundice; Absent erythema or wounds *Routine Neurological Exam Neurological: Present alert and oriented X3 Routine Psychiatric Exam Psychiatric: Present cooperative Progress Note: A&P Assessment and plan (1) Decompensated cirrhosis: Status: Acute (2) Atrial fibrillation with rapid ventricular response: Status: Acute (3) Acute hepatic encephalopathy: Status: Acute (4) Elevated brain natriuretic peptide (BNP) level: Status: Acute (5) Cellulitis: Status: Acute (6) Hypokalemia: Status: Acute (7) Hypomagnesemia: Status: Acute (8) Acute exacerbation of chronic obstructive pulmonary disease: Status: Acute (9) Hx of kidney removal: Status: Acute (10) Jaundice: Status: Acute (11) Tobacco abuse: Status: Acute (12) Abdominal pain: Status: Acute (13) Malnutrition compromising bodily function: Status: Acute (14) Thrombocytopenia: Status: Acute (15) Bilateral lower extremity edema: Status: Acute (16) Hepatitis: Status: Acute Assessment and Plan Assessment and Plan for All Diagnoses:: Paroxysmal atrial fibrillation -Known diagnosis for many years, exacerbated in the setting of decompensated cirrhosis -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
--- NOTE | 2024-06-24 18:47 | EXP.PN ---
Subjective *Date: 06/24/24 *Time: 18:55 Interval history: seen at bedside, lying in bed comfortably, has abdominal distention and lower extrimity edema Exam Data for Last 24 hours Vital signs and Labs for Last 24 Hours: Temp Pulse Resp BP Pulse Ox O2 Del Method O2 Flow Rate 99 F 79 22 110/59 L 92 L Room Air 1 06/24/24 16:00 06/24/24 18:29 06/24/24 18:00 06/24/24 18:00 06/24/24 18:29 06/24/24 18:29 06/24/24 13:21 Laboratory Results - last 24 hr 06/21/24 03:53: Opiates Screen TNP, Oxycodone TNP, Propoxyphene Screen TNP, Barbiturates Qual TNP, Phencyclidine Screen TNP, Amphetamines Screen TNP, Benzodiazepines TNP, Cocaine & Metabolite TNP, Marijuana (THC) Screen TNP 06/24/24 05:27: WBC 5.3 D, RBC 3.09 L, Hgb 9.5 L, Hct 28.2 L, MCV 91.4, MCH 30.8, MCHC 33.7, RDW 14.7, Plt Count 96 L, MPV 8.4, Neut % (Auto) 62.2, Lymph % (Auto) 22.1, [place] % (Auto) 11.9 H, Eos % (Auto) 3.3, Baso % (Auto) 0.5, Neut # (Auto) 3.3, Lymph # (Auto) 1.2, [place] # (Auto) 0.6, Eos # (Auto) 0.2, Baso # (Auto) 0.0, PT 17.0 H, INR 1.59 H, Sodium 132 L, Potassium 3.6, Chloride 103, Carbon Dioxide 28, Anion Gap 4.6 L, BUN 10 D, Creatinine 0.60 L, Estimated Creat Clear 193, Estimated GFR 139, Est GFR ( Amer) 169, Glucose 90, Calcium 7.6 L, Magnesium 1.6 D, Total Bilirubin 4.0 H, AST 96 H, ALT 41, Alkaline Phosphatase 182 H, Total Protein 5.8 L, Albumin 2.3 L, Globulin 3.5 H, Albumin/Globulin Ratio 0.7 L I & O for Last 24 hours: Intake & Output 06/21/24 06/22/24 06/23/24 06/24/24 23:59 23:59 23:59 23:59 Intake Total 2299 / 3157 2168 / 2368 2718.497 / 2748.497 1604.184 / 1604.184 Output Total 1200 / 1200 2575 / 3575 4140 / 4240 2810 / 2810 Balance 1099 / 1957 -407 / -1207 -1421.503 / -1491.503 -1205.816 / -1205.816 Weight 93.7 kg 96.252 kg 97.25 kg 99.11 kg Constitutional Constitutional: no acute distress *Routine HEENT Exam Head: Present normocephalic Eye: Present EOMI and PERRL ENT: Present mucous membranes moist *Routine Neck Exam Neck: Present supple; Absent lymphadenopathy *Routine Respiratory Exam Respiratory: Present CTA bilaterally *Routine Cardiovascular Exam Cardiovascular: Present RRR *Routine Abdominal Exam Abdominal: Present soft and distended; Absent tenderness *Routine Extremities Exam Extremities: Present edema; Absent cyanosis or clubbing Comments: b/l LE edema seen *Routine Skin Exam Skin: Present warm; Absent rash *Routine Neurological Exam Neurological: Present alert and oriented X3 Assessment and Plan *Assessment and plan (1) Decompensated cirrhosis: Status: Acute Category: Medical Code(s): K72.90 - Hepatic failure, unspecified without coma; K74.60 - Unspecified cirrhosis of liver (2) Atrial fibrillation with rapid ventricular response: Status: Acute Category: Medical Code(s): I48.91 - Unspecified atrial fibrillation (3) Acute hepatic encephalopathy: Status: Acute Category: Medical Code(s): K76.82 - Hepatic encephalopathy (4) Elevated brain natriuretic peptide (BNP) level: Status: Acute Category: Medical Code(s): R79.89 - Other specified abnormal findings of blood chemistry (5) Cellulitis: Status: Acute Category: Medical Code(s): L03.90 - Cellulitis, unspecified (6) Hypokalemia: Status: Acute Category: Medical Code(s): E87.6 - Hypokalemia (7) Hypomagnesemia: Status: Acute Category: Medical Code(s): E83.42 - Hypomagnesemia (8) Acute exacerbation of chronic obstructive pulmonary disease: Status: Acute Category: Medical Code(s): J44.1 - Chronic obstructive pulmonary disease with (acute) exacerbation (9) Hx of kidney removal: Status: Acute Category: Surgical Code(s): Z90.5 - Acquired absence of kidney (10) Jaundice: Status: Acute Category: Medical Code(s): R17 - Unspecified jaundice (11) Tobacco abuse:
[2024-06-25] VITALS (17 sets, daily range): BP systolic 86–113; BP diastolic 47–69; PULSE 73–94; RESP 15–24; TEMP 36.8–37.1; O2SAT 90–95; BMI 33.1
[2024-06-25 06:17] LABS: Albumin Level 2.7 g/dl (3.5-5.0); Chloride 103 mmol/L (98-107); Potassium 4.1 mmoL/L (3.5-5.1); Sodium 132 mmol/L (136-145)
[2024-06-25 06:20] LABS: Alanine Aminotransferase 40 U/L (12-78); Albumin/Globulin Ratio 0.8 (1.1-1.8); Alkaline Phosphatase 243 U/L (38-126); Anion Gap 5.1 mEq/L (5-15); Aspartate Amino Transferase 92 U/L (17-59); Bilirubin,Total 4.1 mg/dl (0.2-1.3); Blood Urea Nitrogen 9 mg/dl (9-20); Carbon Dioxide 28 mmol/L (22.0-30.0); Creatinine Clearance Estimated 165 mL/min (50-200); Estimated Glomerular Filt Rate 117 ml/min (>60); GFR (African American) 141 ML/MIN (>60); Globulin 3.5 g/dL (1.3-3.2); Glucose 95 mg/dl (74-100); Total Protein,Serum 6.2 g/dl (6.3-8.2)
--- NOTE | 2024-06-25 07:09 | PC.NURSE ---
Lucien gtt remains on hold since 2029. Pt has maintained a BP MAP >60. Pt has c/o pain in his abdomen and BLE 2x during shift requiring PRN medication per JAN. Pt sat up in chair at beginning of shift, tolerated well. Pt had 1 BM through night. Total of 725ml urine output during shift. Call light within reach.
--- NOTE | 2024-06-25 09:41 | EXP.CARD.PN ---
Subjective Subjective Date: 06/25/24 Time: 09:41 Interval history: No events overnight, remains in sinus rhythm, he is off Lucien-Synephrine. He has not received Unna boots yet. Albumin and increased Bumex have diuresed an additional 2 L and he has some relief in his legs. Exam Data for Last 24 hours Vital signs and Labs for Last 24 Hours: Temp Pulse Resp BP Pulse Ox O2 Del Method O2 Flow Rate 98.6 F 73 20 100/56 L 93 L Room Air 1 06/25/24 08:00 06/25/24 09:00 06/25/24 09:00 06/25/24 09:00 06/25/24 09:00 06/25/24 09:00 06/24/24 13:21 Laboratory Results - last 24 hr 06/21/24 03:53: Opiates Screen TNP, Oxycodone TNP, Propoxyphene Screen TNP, Barbiturates Qual TNP, Phencyclidine Screen TNP, Amphetamines Screen TNP, Benzodiazepines TNP, Cocaine & Metabolite TNP, Marijuana (THC) Screen TNP 06/25/24 05:30: Sodium 132 L, Potassium 4.1, Chloride 103, Carbon Dioxide 28, Anion Gap 5.1, BUN 9, Creatinine 0.70, Estimated Creat Clear 165, Estimated GFR 117, Est GFR ( Amer) 141, Glucose 95, Calcium 8.0 L, Total Bilirubin 4.1 H, AST 92 H, ALT 40, Alkaline Phosphatase 243 H, Total Protein 6.2 L, Albumin 2.7 L D, Globulin 3.5 H, Albumin/Globulin Ratio 0.8 L I & O for Last 24 hours: Intake & Output 06/22/24 06/23/24 06/24/24 06/25/24 23:59 23:59 23:59 23:59 Intake Total 2168 / 2368 2718.497 / 2748.497 1995.312 / 5.312 789 / 789 Output Total 2575 / 3575 4140 / 4240 3110 / 3110 575 / 575 Balance -407 / -1207 -1421.503 / -1491.503 -1113.688 / -1024.688 214 / 214 Weight 212 lb 3.2 oz 214 lb 6.4 oz 218 lb 8 oz 218 lb 8.002 oz Constitutional Constitutional: no acute distress, obese and cooperative *Routine HEENT Exam Eye: Present PERRL *Routine Respiratory Exam Respiratory: Present CTA bilaterally; Absent accessory muscle use, wheezes or crackles *Routine Cardiovascular Exam Cardiovascular: Present RRR, Normal S1 and Normal S2; Absent murmur, gallop or rubs *Routine Abdominal Exam Abdominal: Present soft; Absent tenderness Comments: distended *Routine Extremities Exam Extremities: Present pulses intact; Absent cyanosis or edema *Routine Skin Exam Skin: Present intact and jaundice; Absent erythema or wounds *Routine Neurological Exam Neurological: Present alert and oriented X3 Routine Psychiatric Exam Psychiatric: Present cooperative Progress Note: A&P Assessment and plan (1) Decompensated cirrhosis: Status: Acute (2) Atrial fibrillation with rapid ventricular response: Status: Acute (3) Acute hepatic encephalopathy: Status: Acute (4) Elevated brain natriuretic peptide (BNP) level: Status: Acute (5) Cellulitis: Status: Acute (6) Hypokalemia: Status: Acute (7) Hypomagnesemia: Status: Acute (8) Acute exacerbation of chronic obstructive pulmonary disease: Status: Acute (9) Hx of kidney removal: Status: Acute (10) Jaundice: Status: Acute (11) Tobacco abuse: Status: Acute (12) Abdominal pain: Status: Acute (13) Malnutrition compromising bodily function: Status: Acute (14) Thrombocytopenia: Status: Acute (15) Bilateral lower extremity edema: Status: Acute (16) Hepatitis: Status: Acute Assessment and Plan Assessment and Plan for All Diagnoses:: Paroxysmal atrial fibrillation -Known diagnosis for many years, exacerbated in the setting of decompensated cirrhosis -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 INR stable at 1.5. Not a candidate for DOAC due to cirrhosis. Will utilize Coumadin. Start 5 mg daily, bridge with Lovenox. He will need Coumadin clinic postdischarge. Hypotension -Likely secondary to third spacing from anasarca/cirrhosis -Cont midodrine 5 mg 3 times daily, wean off Lucien-Synep
--- NOTE | 2024-06-25 10:57 | HMH.PTWOUND ---
Rehab Inpt Wound Evaluation Rehab IP Wound Evaluation Start: 06/24/24 10:44 Freq: ONCE Status: Active Protocol: Document 06/25/24 10:47 AMY (Rec: 06/25/24 10:56 AMY [id number]) Rehab PT Wound Assessment Subjective Subjective Patient Shyam Dent is a 54 yom who was admitted 06/21/24 for Encephalopathy, with confusion altered mental status, jaundice, and edema. Patient's PMH is consistent with but not limited to Renal cell cancer and hx of left wrist sx and kidney removal. Patient states that he lives by himself and that sometimes his brother comes by to visit and help. Patient does have stairs upon entering the home, he also stated that he use to have a cane. Patient stated he would like to have a walker in order to be able to walk better. B LE with 2+ pitting edema upon presentation this date. Plan/Recommendation Comment B LE unna boot placed this date for edema control of B lower leg. Pt presents with 2+ pitting edema throughout B LE from upper thigh distally. Nsg staff instructed to regularly check for increased upper leg swelling with lower leg compression. Unna boot should be removed if this occurs. Will re-check B LE for edema control in ~ 3 days. Eval Complexity Eval Charge Codes 96693 - High Complexity PHYSICIAN CERTIFICATION: I certify the specified therapy services for Shyam Dent are required, authorized, and reviewed every 30 days.
--- NOTE | 2024-06-25 12:28 | SW/DCPLANNER ---
Addendum entered by Jerilyn Nathan 06/28/24 13:51: Lucas w/ [facility] stated that services will start this week. Addendum entered by Jerilyn Nathan 06/25/24 15:38: Due to patient residing in [facility] he could be a candidate for [facility]. Patient is agreeable to services. Patient information/order will be faxed today. Original Note: I spoke w/ this patient regarding plans at time of discharge. PT/OT evaluated patient and recommended SNF level of care. Patient stated that he plans to return home at time of discharge. Patient is agreeable to return to [facility] for PT and wound care services. Patient stated that he will have transportation. Patient may discharge home this afternoon or tomorrow per MD.
--- NOTE | 2024-06-29 13:41 | CARE MANAGER ---
Attempted to contact patient x2 related to hospital discharge. No VM option. SAURABH Casey
[2024-07-03 19:29] LABS: Vitamin K1 5.39 ng/mL (0.10-2.20)
--- NOTE | 2024-07-07 15:52 | EXP.DC.SUM ---
General Admission date:: 06/21/24 Discharge date: 06/25/24 HPI HPI HPI: Patient was not able to give clear history, from evaluating chart main thing is only has 1 kidney question cancer and the one that was removed. Greater than 40-year smoking, has been seeing a local primary care provider. But apparently ended [facility] in [facility] for more than 10 [facility], where he was given none of his medications, he now comes in jaundice, pleasantly confused,, significant abdominal and lower extremity edema, confirmed with CT scan. Mild pleural effusion in the bases of the lungs. Showing signs of severe malnutrition, review of older charts indicated elevated PT/INR. Thrombocytopenia, splenomegaly, cirrhosis with ascites. ER physician evaluated the patient and did tap fluid from the abdomen, still waiting on results. I have met with the ER physician and do agree that the gentleman needs to be placed in, to evaluate for nutrition, edema fluid status and to see if we can get him back on the right medications. On interview on morning rounds, patient states that he came in because of weakness in his legs. He has been progressively worsening for the past 2 weeks. He has been home from [facility] for a few weeks and had a care. His brothers have been unable to get him up and take care of him. Came to the ER for evaluation for weakness and confusion. Alert and oriented to place and self today. Complaining of abdominal pain, worse with palpation, no rebound. States his legs been swelling more. Hospital Course Hospital Course Hospital Course: Mr. Dent is a 54-year-old male with decompensated cirrhosis who presented to the ER with confusion and weakness. Reports not being able to get up with the assistance of family. Workup in the ER showing significant abnormalities, mild elevation of ammonia, confusion, and abdominal pain. Diagnostic paracentesis performed and initiated on empiric antibiotics for SBP given tenderness. Case discussed with ER physician, request admission for further management with antibiotics. Medicine agreed to admit. Patient seriously ill, may necessitate transfer to higher level of care if she has further decompensation. Continuing to diurese today. In sinus rhythm. Feeling somewhat better today. Tolerating diltiazem and phenylephrine. Will transition to oral regimen today. Problems addressed as follows: Decompensated alcoholic cirrhosis Encephalopathy Ascites Thrombocytopenia/Coagulopathy -MELD score of 22, Child-Goodwin class C. -Continues to have coagulopathy, received vitamin K Patient was treated for cirrhosis, patient was given lactulose, bumex and albumin, patient was also treated for afib, patient was recommended to follow up with hepatology for liver transplant, patient verbalized understanding and requested to be discharged, patient was discharged in stable condition On the date of discharge, the patient reported feeling stable. The patient was found not to be in any acute distress, and no new abnormalities on physical examination. Further, the patient expressed appropriate understanding of, and agreement with, the discharge recommendations, medications, and plan. Time spent 37 mins Exam Data for Last 24 hours Vital signs and Labs for Last 24 Hours: Temp Pulse Resp BP Pulse Ox O2 Del Method O2 Flow Rate 98.6 F 80 22 110/65 93 L Room Air 1 06/25/24 08:00 06/25/24 16:00 06/25/24 12:00 06/25/24 12:00 06/25/24 12:00 06/25/24 17:00 06/24/24 13:21 Constitutional Constitutional: no acute distress *Routine HEENT Exam Head: Present normocephalic Eye: Present EOMI and PERRL ENT: Present mucous membranes moist *Routine Neck Exam Neck: Present supple; Absent lymphadenopathy *Routine Respiratory Exam Respiratory: Present CTA bilaterally *Routine Cardiovascular Exam Cardiovascular: Present RRR *Routine Abdominal Exam Abdominal: Present soft and distended; Absent tenderness *Routine Extremities Exam Ext
== END 2024-06-25 17:31 | disposition home health service (06) | DRG 433 ==
LOC: ER 21:04 → 2ND 22:53 → ER 23:46 → 2ND 06-21 00:19
PROVIDERS: Emergency Medicine; Nurse Practitioner Family; Admitting Provider Internal Medicine Adolescent Medicine; Emergency Provider Emergency Medicine; PCP Family Medicine; Visit Provider Internal Medicine Adolescent Medicine
DX: K70.31 Alcoholic cirrhosis of liver with ascites (principal); D68.9 Coagulation defect, unspecified; E46 Unspecified protein-calorie malnutrition; J44.1 Chronic obstructive pulmonary disease with (acute) exacerbation; R17 Unspecified jaundice; L03.115 Cellulitis of right lower limb; Z85.528 Personal history of other malignant neoplasm of kidney; F17.210 Nicotine dependence, cigarettes, uncomplicated; K76.82 Hepatic encephalopathy; E87.6 Hypokalemia; E83.42 Hypomagnesemia; Z90.5 Acquired absence of kidney; Z68.33 Body mass index [BMI] 33.0-33.9, adult; D69.6 Thrombocytopenia, unspecified; K75.9 Inflammatory liver disease, unspecified; I95.9 Hypotension, unspecified; I48.0 Paroxysmal atrial fibrillation
CPT/HCPCS: 49082; 36415; 70450; 71045; 73600; 74176; 76705; 80048; 80053; 80307; 80320; 81001; 82140; 82248; 82803; 83605; 83690; 83735; 83880; 84484; 84597; 85007; 85025; 85027; 85610; 87070; 87205; 89051; 93005; 93306; 94640; 94761; 97110; 97163; 97166; 97530; 99291; G0480; J0282; J0456; J0696; J1650; J2270; J2405; J2919; J3370; J3411; J3430; J3475; J7030; J7060; J7120; J7620; P9047

== ENCOUNTER 2024-07-01 07:53 | Outpatient (CLI) | payer MEDICAID, SELFPAY ==
[2024-07-01 08:40] LABS: PHA INR Fingerstick 1.9 (0.9-1.1)
== END 2024-07-01 08:41 ==
LOC: ACC 07:53
PROVIDERS: PCP Family Medicine; Visit Provider Physician Assistant
DX: I48.91 Unspecified atrial fibrillation (principal); Z79.01 Long term (current) use of anticoagulants
CPT/HCPCS: 85610; 99211; G0463

== ENCOUNTER 2024-07-12 09:08 | Outpatient (CLI) | payer MEDICAID, SELFPAY ==
[2024-07-12 19:01] LABS: Basophils # 0.1 K/mm3 (0-0.2); Basophils % 1.9 % (0.1-2.0); Eosinophils # 0.1 K/mm3 (0.0-0.4); Eosinophils % 3.3 % (0.1-12.0); Hematocrit 34.4 % (42.0-52.0); Hemoglobin 10.6 g/dL (14.1-18.0); Lymphocytes % 27.5 % (10-50); Mean Corpuscular HGB Conc 30.9 g/dL (31.8-35.4); Mean Corpuscular Hemoglobin 29.1 pg (27.0-31.2); Mean Corpuscular Volume 94.4 fl (80-94); Mean Platelet Volume 10.4 fl (7.4-10.4); Monocytes # 0.4 K/mm3 (0.1-1.0); Monocytes % 11.6 % (1.7-9.3); Neutrophils # 2.1 K/mm3 (1.8-7.8); Neutrophils % 55.7 % (37.0-80.0); Platelet Count 96 K/mm3 (142-424); Red Blood Count 3.65 M/mm3 (4.60-6.20); Red Cell Distribution Width 15.7 % (11.5-17.5); White Blood Count 3.8 K/mm3 (4.8-10.8)
[2024-07-12 19:59] LABS: Alanine Aminotransferase 36 U/L (12-78); Albumin Level 2.9 g/dl (3.5-5.0); Albumin/Globulin Ratio 0.6 (1.1-1.8); Alkaline Phosphatase 290 U/L (38-126); Aspartate Amino Transferase 87 U/L (17-59); Bilirubin,Total 3.5 mg/dl (0.2-1.3); Blood Urea Nitrogen 7 mg/dl (9-20); Calcium 8.4 mg/dl (8.4-10.2); Chloride 99 mmol/L (98-107); Estimated Glomerular Filt Rate 117 ml/min (>60); GFR (African American) 141 ML/MIN (>60); Globulin 4.5 g/dL (1.3-3.2); Glucose 105 mg/dl (74-100); Potassium 3.7 mmoL/L (3.5-5.1); Sodium 133 mmol/L (136-145); Total Protein,Serum 7.4 g/dl (6.3-8.2)
[2024-07-12 20:00] LABS: Anion Gap 7.7 mEq/L (5-15); Carbon Dioxide 30 mmol/L (22.0-30.0)
== END 2024-07-12 23:59 | disposition home or self-care (01) ==
LOC: LAB.DROPOF 07-13 10:02
PROVIDERS: PCP Family Medicine; Visit Provider Family Medicine
DX: E87.6 Hypokalemia (principal); I95.9 Hypotension, unspecified; D69.6 Thrombocytopenia, unspecified
CPT/HCPCS: 80053; 85025

== ENCOUNTER 2024-11-09 08:15 | Outpatient (CLI) | payer MEDICAID, SELFPAY ==
--- NOTE | 2024-11-09 08:16 | US_ITS ---
FINAL REPORT CLINICAL HISTORY: Lucas [place] - paracentesis not performed today due to pt not having enough fluid to safely drain FINDINGS: LIMITED ABDOMINAL ULTRASOUND HISTORY: Ascites, scheduled for paracentesis. PROCEDURE: Sonographic images of the 4 quadrants of the abdomen were performed. FINDINGS: A small amount of ascites is present. However, this is localized in the right upper quadrant, immediately adjacent to the liver. There is insufficient fluid for safe performance of therapeutic paracentesis. Additionally, the patient was having difficulty remaining still due to severe back pain. IMPRESSION: Insufficient pocket of fluid for safe paracentesis. Reviewed, Interpreted and Dictated by Steph Finley MD Transcribed by Yajaira Bryant PA-C Authenticated and [facility]
== END 2024-11-09 23:59 | disposition home or self-care (01) ==
LOC: RAD 08:16
PROVIDERS: PCP Family Medicine; Visit Provider Family Medicine
DX: K74.60 Unspecified cirrhosis of liver (principal); R18.8 Other ascites
CPT/HCPCS: 76705